=== PATIENT | male | born 1950 | race Caucasian/White ===

== ENCOUNTER → 2019-09-10 09:26 | Outpatient (BNVA) | payer MEDICARE, SELFPAY | PROVIDERS: Family Provider Family Medicine; PCP Family Medicine; Visit Provider Urology | DX: C61 Malignant neoplasm of prostate (principal) | CPT/HCPCS: 81001 ==

== ENCOUNTER → 2019-10-29 10:10 | Outpatient (BNVA) | payer MEDICARE, SELFPAY | PROVIDERS: Family Provider Family Medicine; PCP Family Medicine; Visit Provider Family Medicine | DX: E78.2 Mixed hyperlipidemia (principal) | CPT/HCPCS: 36415; 80061 ==

== ENCOUNTER → 2019-12-11 00:01 | Outpatient (BNVA) | payer MEDICARE, SELFPAY | PROVIDERS: Family Provider Family Medicine; PCP Family Medicine; Visit Provider Family Medicine | DX: E78.5 Hyperlipidemia, unspecified (principal) | CPT/HCPCS: 80061 ==

== ENCOUNTER → 2020-02-25 15:16 | Outpatient (BNVA) | payer MEDICARE, SELFPAY | PROVIDERS: Family Provider Family Medicine; PCP Family Medicine; Visit Provider Urology | DX: C61 Malignant neoplasm of prostate (principal) | CPT/HCPCS: 84153 ==

== ENCOUNTER → 2020-03-11 14:15 | Outpatient (BNVA) | payer MEDICARE, SELFPAY | PROVIDERS: Family Provider Family Medicine; PCP Family Medicine; Visit Provider Urology | DX: C61 Malignant neoplasm of prostate (principal) | CPT/HCPCS: 81001 ==

== ENCOUNTER → 2020-08-26 09:00 | Outpatient (BNVA) | payer MEDICARE, SELFPAY | PROVIDERS: Family Provider Family Medicine; PCP Family Medicine; Visit Provider Urology | DX: C61 Malignant neoplasm of prostate (principal) | CPT/HCPCS: 84153 ==

== ENCOUNTER → 2020-09-10 13:38 | Outpatient (BNVA) | payer MEDICARE, SELFPAY | PROVIDERS: Family Provider Family Medicine; PCP Family Medicine; Visit Provider Urology | DX: C61 Malignant neoplasm of prostate (principal); R97.20 Elevated prostate specific antigen [PSA] | CPT/HCPCS: 81003 ==

== ENCOUNTER → 2020-09-24 08:53 | Outpatient (BNVA) | payer MEDICARE, SELFPAY | PROVIDERS: Family Provider Family Medicine; PCP Family Medicine; Visit Provider Urology | DX: C61 Malignant neoplasm of prostate (principal) | CPT/HCPCS: 84153 ==

== ENCOUNTER → 2020-09-30 15:41 | Outpatient (BNVA) | payer MEDICARE, SELFPAY | PROVIDERS: Family Provider Family Medicine; PCP Family Medicine; Visit Provider Urology | DX: C61 Malignant neoplasm of prostate (principal); N41.1 Chronic prostatitis; R97.20 Elevated prostate specific antigen [PSA] | CPT/HCPCS: 81003 ==

== ENCOUNTER 2020-11-26 06:00 | Outpatient (RCR) | payer MEDICARE, SELFPAY | END 2020-11-26 23:59 | disposition home or self-care (01) | LOC: GPT 06:00 | PROVIDERS: Family Provider Family Medicine; PCP Family Medicine; Referring Provider Family Medicine; Visit Provider Family Medicine | DX: R29.6 Repeated falls (principal) | CPT/HCPCS: 97032; 97161; 97530; 97760 ==

== ENCOUNTER 2020-11-27 06:00 | Outpatient (RCR) | payer MEDICARE, SELFPAY | END 2020-12-26 23:59 | disposition home or self-care (01) | LOC: GPT 06:00 | PROVIDERS: Family Provider Family Medicine; PCP Family Medicine; Referring Provider Family Medicine; Visit Provider Family Medicine | DX: R29.6 Repeated falls (principal) | CPT/HCPCS: 97110; 97112; 97116; 97164; 97530; 97760 ==

== ENCOUNTER 2020-12-27 06:00 | Outpatient (RCR) | payer MEDICARE, SELFPAY | END 2021-01-26 23:59 | disposition home or self-care (01) | LOC: GPT 06:00 | PROVIDERS: PCP Family Medicine; Referring Provider Family Medicine; Visit Provider Family Medicine | DX: R29.6 Repeated falls (principal) | CPT/HCPCS: 97110; 97112; 97116; 97530; 97760 ==

== ENCOUNTER → 2021-01-06 10:34 | Outpatient (BNVA) | payer MEDICARE, SELFPAY | PROVIDERS: Family Provider Family Medicine; PCP Family Medicine; Visit Provider Family Medicine | DX: M25.561 Pain in right knee (principal); M25.562 Pain in left knee; R29.6 Repeated falls | CPT/HCPCS: 73562 ==

== ENCOUNTER → 2021-01-21 08:44 | Outpatient (BNVA) | payer MEDICARE, SELFPAY | PROVIDERS: PCP Family Medicine; Visit Provider Family Medicine | DX: R97.20 Elevated prostate specific antigen [PSA] (principal) | CPT/HCPCS: 84153 ==

== ENCOUNTER → 2021-01-28 13:43 | Outpatient (BNVA) | payer MEDICARE, SELFPAY | PROVIDERS: PCP Family Medicine; Visit Provider Urology | DX: C61 Malignant neoplasm of prostate (principal) | CPT/HCPCS: 81003 ==

== ENCOUNTER → 2021-07-29 09:33 | Outpatient (BNVA) | payer MEDICARE, SELFPAY | PROVIDERS: PCP Family Medicine; Visit Provider Family Medicine | DX: C61 Malignant neoplasm of prostate (principal) | CPT/HCPCS: 84153 ==

== ENCOUNTER → 2021-08-04 13:09 | Outpatient (BNVA) | payer MEDICARE, SELFPAY | PROVIDERS: PCP Family Medicine; Visit Provider Urology | DX: N41.1 Chronic prostatitis (principal); C61 Malignant neoplasm of prostate | CPT/HCPCS: 81003 ==

== ENCOUNTER 2021-10-27 06:00 | Outpatient (RCR) | payer MEDICARE, SELFPAY | END 2021-11-26 23:59 | disposition home or self-care (01) | LOC: SPT 06:00 | PROVIDERS: PCP Family Medicine; Referring Provider Orthopaedic Surgery; Visit Provider Orthopaedic Surgery | DX: M17.12 Unilateral primary osteoarthritis, left knee (principal) | CPT/HCPCS: 97032; 97110; 97116; 97140; 97161; G0283 ==

== ENCOUNTER 2021-11-27 06:00 | Outpatient (RCR) | payer MEDICARE, SELFPAY | END 2021-12-26 23:59 | disposition home or self-care (01) | LOC: SPT 06:00 | PROVIDERS: PCP Family Medicine; Referring Provider Orthopaedic Surgery; Visit Provider Orthopaedic Surgery | DX: M17.12 Unilateral primary osteoarthritis, left knee (principal) | CPT/HCPCS: 97110; 97116; 97140; G0283 ==

== ENCOUNTER 2021-12-27 06:00 | Outpatient (RCR) | payer MEDICARE, SELFPAY | END 2022-01-18 23:59 | disposition home or self-care (01) | LOC: SPT 06:00 | PROVIDERS: PCP Family Medicine; Referring Provider Orthopaedic Surgery; Visit Provider Orthopaedic Surgery | DX: M17.12 Unilateral primary osteoarthritis, left knee (principal) | CPT/HCPCS: 97110; 97140 ==

== ENCOUNTER → 2022-02-08 09:00 | Outpatient (BNVA) | payer MEDICARE, SELFPAY | PROVIDERS: PCP Family Medicine; Visit Provider Urology | DX: R97.20 Elevated prostate specific antigen [PSA] (principal) | CPT/HCPCS: 84153 ==

== ENCOUNTER → 2022-02-15 15:10 | Outpatient (BNVA) | payer MEDICARE, SELFPAY | PROVIDERS: PCP Family Medicine; Visit Provider Urology | DX: C61 Malignant neoplasm of prostate (principal) | CPT/HCPCS: 81003; 99213 ==

== ENCOUNTER → 2022-05-06 09:30 | Outpatient (BNVA) | payer MEDICARE, SELFPAY | PROVIDERS: PCP Family Medicine; Visit Provider Nurse Practitioner Family | DX: E78.5 Hyperlipidemia, unspecified (principal) | CPT/HCPCS: 80053; 80061; 84443 ==

== ENCOUNTER 2022-06-02 11:19 | Emergency (ER) | payer MEDICARE, SELFPAY ==
[2022-06-02 11:32] VITALS: BP 161/100; PULSE 58; RESP 16; TEMP 36.9; O2SAT 97; BMI 28.0
--- NOTE | 2022-06-02 11:40 | XRR_ITS ---
PROCEDURE INFORMATION: Exam: XR Sacrum and Coccyx, 2 or More Views Exam date and time: 06/02/2022 12:20 PM Age: 72 years old Clinical indication: Injury or trauma; Fall; Blunt trauma (contusions or hematomas); Additional info: Fall and hit tail bone area TECHNIQUE: Imaging protocol: XR of the sacrum and coccyx, 2 or more views. COMPARISON: MR prostate 08/10/2019 6:27 PM FINDINGS: Bones/joints: Degenerative changes are present in the lower lumbar spine. No acute fracture. Soft tissues: Normal. XR/XR sacrum coccyx min 2V [id number] IMPRESSION: No acute findings.
--- NOTE | 2022-06-02 11:40 | XRR_ITS ---
PROCEDURE INFORMATION: Exam: XR Lumbosacral Spine Exam date and time: 06/02/2022 12:20 PM Age: 72 years old Clinical indication: Pain and injury or trauma; Fall; Blunt trauma (contusions or hematomas); Low back pain; Additional info: Fall with low back pain TECHNIQUE: Imaging protocol: Radiologic exam of the lumbosacral spine. Views: 2 or 3 views. COMPARISON: MR prostate 08/10/2019 6:27 PM FINDINGS: Bones/joints: No fracture, malalignment or acute abnormality is seen in the lumbar spine. Moderate chronic degenerative disease is present with osteophytes on the vertebral bodies. There is sclerosis and narrowing of the lumbar facet joints. Soft tissues: Unremarkable. Vasculature: There is prominent calcification of the aorta. 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 No acute abnormality.
--- NOTE | 2022-06-02 11:41 | ED_ITS ---
HPI - Fall General: Chief Complaint: Fall Stated Complaint: Pain in back Time Seen by Provider: 06/02/22 11:39 History of Present Illness: Patient is a 72-year-old male comes to the ED with lower back pain after fall. Fall occurred approximately 4 days ago. He lost his balance while standing and fell backwards landing on his butt and lower back. Denies any head trauma or loss of consciousness. For the past couple days he has been having worsening lower back pain throughout his lower back. With movement of torso pain radiates into his lower abdomen. While at rest he rates the pain a 3 out of 10 but worsens with any torso movement. Endorses having some pain right around the tailbone region as well. He has not taken anything for pain before coming to the ED. Denies any pain radiating down his legs. Associated symptoms-after fall: Denies abdominal pain, chest pain, headache(s), hematuria or neck pain Review of Systems Const: Denies: fever(s), chills or fatigue Eyes: Denies: change in vision or eye discomfort ENMT: Denies: throat pain, odynophagia, nasal discharge or nasal congestion Card: Denies: chest pain, palpitations, edema, swelling of feet/ankles, dyspnea on exertion or orthopnea Resp: Denies: dyspnea, productive cough or non-productive cough GI: Denies: abdominal pain, nausea, vomiting, diarrhea, constipation or hematochezia : Denies: flank pain, difficulty urinating, dysuria or hematuria Musc: Reports: back pain; Denies: neck pain or extremity swelling Skin/Breast: Denies: rash or new lesions Neuro: Denies: headache(s), numbness in extremities or weakness in extremities PFSH ED PFSH: Medical History Prostate cancer Diagnosed 2011 with PSA of approximately 8. Normal VIC. Chose active surveillance. Some fluctuation in PSA probably related to infection. Follow-up 3T MRI in 2019 showed only PIRADS 2. No dramatic trend upwards not associated with inflammation. Surgical History H/O prostate biopsy also by Dr. Franz in [facility]. Home Status post appendectomy Status post bilateral hernia repair Family History Family/Other Cancer Hypertension Stroke Diabetes Father , at age 67-lung cancer No problems noted. Mother , at age 55 Stroke Social History Smoking and tobacco status: never smoked Quit status (tobacco): has quit using tobacco Year quit tobacco: 1981 Alcohol intake: current Alcohol intake frequency: few times a month Marital status: Current occupational status: retired History of recent travel: No Physical Exam Const: COMMON NORMALS: no acute distress, patient oriented x3, healthy appearing and alert GENERAL APPEARANCE: cooperative and comfortable HENMT: COMMON NORMALS: normocephalic HEAD & SCALP: normocephalic MOUTH: Normal oral and palatal mucosa present THROAT: posterior oropharynx normal and uvula midline Neck/C-Spine: COMMON NORMALS: supple GENERAL: Yes normal visual inspection Resp: COMMON NORMALS: normal respiratory effort, No retractions, No use of accessory muscles and clear to auscultation bilaterally AUSCULTATION: clear to auscultation bilaterally Cardio: COMMON NORMALS: regular rate, regular rhythm, S1 normal heart sound present, S2 normal heart sound present, No gallops present (Cardio), No clicks present (Cardio), No murmurs present (Cardio) and Peripheral pulses 2+ throughout RATE: regular rate RHYTHM: regular rhythm HEART SOUNDS: S1 normal heart sound present and S2 normal heart sound present PERIPHERAL PULSES: Peripheral pulses 2+ throughout GI: COMMON NORMALS: Normal to inspection, nondistended, normoactive bowel sounds present, Soft to palpation, non-tender and no masses PALPATION: Yes Soft to palpation : COMMON NORMALS: Yes no CVA tenderness BLADDER/KIDNEY EXAM: Yes no CVA tenderness Back/Pelvis: COMMON NORMALS: no CVA tenderness LUMBAR SPINE/LOWER BACK: Yes pain with ROM, No lumbar spinal tenderness and Yes paraspinal muscle tenderness Lumbar paraspinal muscle tenderness: bilateral Bilateral lumbar paraspinal muscle tenderness: L2, L3 and L4 Extremity: COMMON NORMALS: normal to inspection Neuro: COMMON NORMALS: patient oriented x3 SENSORIUM/ORIENTATION: Yes alert GAIT: Yes Normal gait present Skin: GENERAL SKIN EXAM: dry skin Course Vital Signs: Vital signs: Vital Signs Temperature 98.5 F 06/02/22 11:32 Pulse Rate 58 L 06/02/22 11:32 Respiratory Rate 16 06/02/22 11:32 Blood Pressure 161/100 06/02/22 11:32 Pulse Oximetry 97 06/02/22 11:32 MDM - Fall Medical Decision Making Patient is a 72-year-old male comes to the ED with lower back pain after fall. Fall occurred approximately 4 days ago. He lost his balance while standing and fell backwards landing on his butt and lower back. Denies any head trauma or loss of consciousness. Vitals are stable. Patient appears nontoxic and in no acute distress or pain. He has some pain in his lumbar spine with range of motion and some paraspinal muscle tenderness throughout lumbar spine. X-ray of sacrum and coccyx and lumbar spine showed no acute fractures or findings. Patient's back pain likely contusion of the lower back due to fall. Patient was given a dose of Toradol and muscle relaxer here in the ED. He was discharged home with a prescription for ibuprofen 800 mg and methocarbamol. Told to follow-up with PCP in the next week for reevaluation. Patient understood and agreed with plan. 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 No acute abnormality. Sacrum and Coccyx X-Ray 06/02/22 11:40 IMPRESSION: No acute findings. Discharge Plan Discharge Patient Disposition: Home Clinical Impression: Back pain due to injury Condition: Stable Prescriptions: New methocarbamol 750 mg tablet 750 mg PO Q8H PRN (Reason: Back muscle spasms and pain) Qty: 20 0RF ibuprofen 800 mg tablet 800 mg PO Q8H PRN (Reason: pain) Qty: 20 0RF No Action meloxicam 7.5 mg tablet 7.5 mg PO DAILY metoprolol succinate 25 mg tablet extended release 24 hr 25 mg PO BID Qty: 60 11RF amlodipine 10 mg tablet 10 mg PO DAILY Qty: 30 11RF triamterene-hydrochlorothiazid 37.5-25 mg tablet See Rx Instructions .ROUTE .COMPLEX Qty: 30 11RF Dose Instruction: TAKE ONE TABLET BY MOUTH ONCE DAILY Rx Instructions: TAKE ONE TABLET BY MOUTH ONCE DAILY simvastatin 5 mg tablet 5 mg PO DAILY Qty: 30 11RF Discharge Orders: Discharge ED (Routine); Ordered 06/02/22 Ordered By: Jassi Senior Referrals: Davin Collier DO [Primary Care Provider] - Discharge Diet: Regular Discharge Activity: Increase activity as tolerated Patient Instructions: Back Pain (ED) Activity Restrictions/Additional Instructions: Follow-up with medical provider as directed in the next 5 to 7 days for reevaluation. Take medications as prescribed. Return to the ER or your medical provider if condition worsens. Please read and understand discharge instructions. Thank you for choosing [facility] for your healthcare needs today. Please realize this is an emergency room and that we are providing you with a medical screening exam and this may not be complete and all inclusive of all the testing and or work up that you may need to determine your ailment or severity of your illness. It is very important that you follow up as instructed or that you return to the Emergency Department should you have concerns or if your condition changes or worsens in any way. Coding Level of Care Code ED Telephonic Nurse Case Manager for Mckenzie Hay Exam Comprehensive
[2022-06-02] MEDS: orphenadrine 30 mg/mL Inj 2 mL 60 MG IM (13:13)
[2022-06-02] MEDS: ketorolac 30 mg/mL INJ 60 MG IM (13:28)
== END 2022-06-02 14:10 | disposition home or self-care (01) ==
PROVIDERS: Emergency Provider Physician Assistant; PCP Family Medicine
DX: S39.92XA Unspecified injury of lower back, initial encounter (principal); Z87.891 Personal history of nicotine dependence; Z85.46 Personal history of malignant neoplasm of prostate; W18.30XA Fall on same level, unspecified, initial encounter
CPT/HCPCS: 72100; 72220; 96372; 99284; J1885; J2360

== ENCOUNTER 2022-06-30 06:00 | Outpatient (RCR) | payer MEDICARE, SELFPAY | END 2022-07-28 23:59 | disposition home or self-care (01) | LOC: SPT 06:00 | PROVIDERS: PCP Family Medicine; Visit Provider Family Medicine | DX: M47.816 Spondylosis without myelopathy or radiculopathy, lumbar region (principal); S39.011A Strain of muscle, fascia and tendon of abdomen, initial encounter; S39.012A Strain of muscle, fascia and tendon of lower back, initial encounter; X58.XXXA Exposure to other specified factors, initial encounter | CPT/HCPCS: 97110; 97140; 97162; 97530 ==

== ENCOUNTER → 2022-08-11 11:19 | Outpatient (BNVA) | payer MEDICARE, SELFPAY | PROVIDERS: PCP Family Medicine; Visit Provider Family Medicine | DX: C61 Malignant neoplasm of prostate (principal) | CPT/HCPCS: 84153 ==

== ENCOUNTER → 2022-08-17 12:33 | Outpatient (BNVA) | payer MEDICARE, SELFPAY | PROVIDERS: PCP Family Medicine; Visit Provider Urology | DX: C61 Malignant neoplasm of prostate (principal); R97.20 Elevated prostate specific antigen [PSA] | CPT/HCPCS: 81003; 99213 ==

== ENCOUNTER → 2022-12-15 10:30 | Outpatient (BNVA) | payer MEDICARE, SELFPAY | PROVIDERS: PCP Family Medicine; Visit Provider Nurse Practitioner Family | DX: R60.9 Edema, unspecified (principal) | CPT/HCPCS: 80053 ==

== ENCOUNTER → 2022-12-22 13:02 | Outpatient (BNVA) | payer MEDICARE, SELFPAY | PROVIDERS: PCP Family Medicine; Visit Provider Nurse Practitioner Family | DX: Z79.899 Other long term (current) drug therapy (principal); R60.9 Edema, unspecified; Z68.27 Body mass index [BMI] 27.0-27.9, adult | CPT/HCPCS: 80053 ==

== ENCOUNTER → 2023-01-19 09:20 | Outpatient (BNVA) | payer MEDICARE, SELFPAY | PROVIDERS: PCP Family Medicine; Visit Provider Nurse Practitioner Family | DX: R60.9 Edema, unspecified (principal); Z79.899 Other long term (current) drug therapy; Z68.27 Body mass index [BMI] 27.0-27.9, adult | CPT/HCPCS: 80053 ==

== ENCOUNTER → 2023-02-17 10:52 | Outpatient (BNVA) | payer MEDICARE, SELFPAY | PROVIDERS: PCP Family Medicine; Visit Provider Nurse Practitioner Family | DX: E78.5 Hyperlipidemia, unspecified (principal); Z79.899 Other long term (current) drug therapy; R60.9 Edema, unspecified | CPT/HCPCS: 80053; 80061 ==

== ENCOUNTER 2023-03-11 08:20 | Outpatient (RCR) | payer MEDICARE, SELFPAY ==
--- NOTE | 2023-03-11 08:50 | N.ONRAD NP_ITS ---
Radiation Oncology Consultation Patient Name: Magdy Mancilla Date of : 1950 Date of Service: 03/11/2023 Attending Physician: Eliel Atkins M.D. Magdy Mancilla was seen in consultation this morning at the request of Elian Almanzar M.D. for consideration of prostate radiotherapy in the management of a previously diagnosed prostate cancer. He initially was identified to have an elevated PSA level (6.7 ng/mL) in September of 2011. A biopsy diagnosed an adenocarcinoma the prostate Marylou score of 3+3 involving 2% of the specimen. The patient decided upon active surveillance. The PSA levels slowly began rising. An MRI of the prostate obtained in July of 2019 did not identify any lesions. In July 2022, the PSA level was 18 ng/mL. An MRI of the prostate ordered on September 07, 2022 ordered a 4.9 cm x 6.3 cm x 4.2 cm prostate gland (68 cc). Suspicious lesion was noted in the right postero-lateral base of the peripheral zone measuring 6 mm x 8 mm. An MRI-guided biopsy performed on February 17, 2023 diagnosed an adenocarcinoma of the prostate with a Marylou score of 4+3 (Grade Group 3) involving 70% of the core submitted from right mid-gland. He was referred for radiotherapy treatment options. I discussed with the patient the [place] [employer] on Cancer staging and the patient's presumed clinical stage IIC (T2aN0) unfavorable intermediate-risk prostate cancer corresponding to his disease. I also reviewed the National Comprehensive Cancer Network Guidelines recommending surgery, external beam radiotherapy with androgen deprivation therapy (6 months), or radiotherapy with brachytherapy (as per the ASCENDE-RT Trial). I will order a PSA and testosterone level. A Pylarify scan has been ordered by his urologist. The potential toxicities of pelvic radiotherapy were addressed. The patient has verbalized understanding would like to proceed as recommended. The patient???s treatment plan was discussed with Kyle Joshua D.O. Signed by: Dr. Eliel Atkins 03/11/2023 8:48:41 AM
[2023-03-11 09:03] VITALS: BP 134/80; PULSE 57; RESP 18; TEMP 36.7; O2SAT 98
[2023-03-11 09:39] LABS: Testosterone Total 713.2 ng/dL (193-740)
== END 2023-03-28 23:59 | disposition home or self-care (01) ==
LOC: ONCMED 08:20
PROVIDERS: PCP Family Medicine; Visit Provider Radiology Radiation Oncology
DX: C61 Malignant neoplasm of prostate (principal); Z87.891 Personal history of nicotine dependence
CPT/HCPCS: 36415; 84153; 84403; 99205

== ENCOUNTER 2023-05-20 14:06 | Outpatient (CLI) | payer MEDICARE, SELFPAY ==
--- NOTE | 2023-05-20 15:00 | XR_ITS ---
WS: [id number] SCREENING DEXA SCAN [employer] CLINICAL INFORMATION: prostate cancer, androgen deprivation therapy COMPARISON: None. FINDINGS: The L1-L4 bone mineral density measures 1.473 g/cm2. This corresponds to a T score score of 2.1 and Z score of 2.8. Left femoral neck bone mineral density measures 0.912 g/cm2. This corresponds to a T score of -1.3 an d Z score of -0.4. Right femoral neck bone mineral density measures 0.912 g/cm2. This corresponds to a T score -1.3of an d Z score of -0.4. Mean femoral neck bone mineral density measures 0.912 g/cm2. This corresponds to a T score of -1.3 an d Z score of -0.4. IMPRESSION: Normal bone mineralization lumbar spine. Osteopenia femoral necks. Patient's FRAX calculated 10 year probability for major osteoporotic fracture is 10.0% and osteoporot ic hip fracture is 3.9%.
== END 2023-05-20 14:07 | disposition home or self-care (01) ==
PROVIDERS: PCP Family Medicine; Visit Provider Internal Medicine Medical Oncology
DX: Z13.820 Encounter for screening for osteoporosis (principal); C61 Malignant neoplasm of prostate; Z79.818 Long term (current) use of other agents affecting estrogen receptors and estrogen levels; M85.852 Other specified disorders of bone density and structure, left thigh; M85.851 Other specified disorders of bone density and structure, right thigh
CPT/HCPCS: 77080

== ENCOUNTER 2023-05-24 14:30 | Oncology outpatient (recurring) (ONCR) | payer MEDICARE, SELFPAY ==
--- NOTE | 2023-05-03 16:33 | ONCRAD EPV_ITS ---
Radiation Oncology Established Patient Visit Patient: Laurent Curran [id number] : 1950> Age: 73> Sex: Male> Dictated by: Julito Bronson Date of Service: 05/03/2023 Referring Physician(s) : Diagnosis: 2022 Prostate, adenocarcinoma, [place] 4+3, PSA 21.5, grade group 3, risk group high 2011 Prostate, adenocarcinoma, Marylou 3+3, PSA 6.7, grade group 2, risk group very low Active Surveillance. Radiotherapy to Date: None Current History: Mr. Mancilla previously saw Dr. Atkins, who summarized his history of active surveillance since 2011. He had a very low risk cancer at that time. It has now transitioned into a high risk cancer. He was sent for a Pylarify scan. The results have returned with no evidence of lymphadenopathy in the pelvis or metastatic disease. There are positive areas in the prostate with no extraprostatic extension seen. He returns now to discuss appropriate treatment. Current Medications: Not evaluated. Allergies: Not evaluated. Current Complaints / Review of Systems: . Not evaluated. Vital Signs: Performed on 05/03/2023 1:23 PM BMI - 25.119 kg/m2 (high), Height - 68 in, Weight - 165.2 lbs, Temperature - 98 f, Pulse - 52 /min (low), Respiration - 18 /min, O2 Sat - 95 % (low), Pain - 0, Fatigue - 0 and BP - 144/ 73 mm(hg)(high/). Physical Exam: General: Alert and oriented x 3. No acute distress Performance Status: Karnofsky 70 Lab: None pending. Pathology: Whitehall 4+3 Impression: Based on a PSA of 21.5, Mr. Mancilla is in the high risk group of prostate cancer patients. ADT is recommended with external beam radiation. I discussed that with him. I discussed that typically ADT is given and then radiation is started about 6 weeks later. I discussed coming in for simulation about 2 weeks before starting radiation. I reviewed the side effects related to ADT. I then reviewed the side effects related to radiation. I discussed the small risk of bowel or bladder injury. He wishes to proceed with ADT followed by external beam radiation. A referral will be made to medical oncology. Signed by: 05/03/2023 4:31:29 PM <<Signature on File>> Time spent with patient: CPT Code: CPT Code:
[2023-05-11 13:33] VITALS: BP 180/80; PULSE 54; RESP 16; TEMP 36.6; O2SAT 99
[2023-05-11 13:45] LABS: Basophils # 0.1 10^3/uL (0.0-0.1); Basophils % 0.6 %; Eosinophils # 0.2 10^3/uL (0.0-0.8); Eosinophils % 1.7 %; Hematocrit 50.1 % (37-53); Lymphocytes # 2.8 10^3/uL (0.8-4.8); Lymphocytes % 27.3 %; Mean Corpuscular HGB Conc 33.7 g/dL (30-55); Mean Corpuscular Hemoglobin 29.6 pg (27-33); Mean Corpuscular Volume 87.9 fl (82-101); Mean Platelet Volume 9.2 fL (7.4-10.4); Monocytes # 0.7 10^3/uL (0.2-0.9); Monocytes % 7.2 %; Nucleated Red Blood Cells % 0 %; Platelet Count 254 10^3/cmm (157-399); Red Cell Distribution Width 12.9 % (12.1-15.1); White Blood Count 10.15 10^3/uL (3.29-11.43)
[2023-05-11 14:22] LABS: Alanine Aminotransferase 20 U/L (0-41); Albumin Level 4.1 g/dL (3.5-5.2); Alkaline Phosphatase 84 U/L (40-130); Anion Gap 11.1 (5-19); Aspartate Amino Transferase 16 U/L (0-40); Blood Urea Nitrogen 20 mg/dL (8-23); Calcium 9.5 mg/dL (8.5-10.5); Carbon Dioxide 32 mmol/L (22-29); Chloride 98 mmol/L (98-107); Glucose 132 mg/dL (65-115); Osmolality Calculated 288 mOsm/kg (285-295); Potassium 4.1 mmol/L (3.5-5.1); Sodium 137 mmol/L (136-145); Testosterone Total 463.6 ng/dL (193-740); Total Bilirubin 1.2 mg/dL (0.15-1.2); Total Protein 7.1 g/dL (6.6-8.7)
[2023-05-24 14:48] VITALS: BP 165/76; PULSE 56; RESP 17; TEMP 37; O2SAT 97
[2023-05-24] MEDS: leuprolide 22.5 mg Kit IM (15:01)
[2023-05-24 15:12] VITALS: BP 126/77; PULSE 52; RESP 17; TEMP 35.8; O2SAT 99
== END 2023-05-28 23:59 | disposition home or self-care (01) ==
PROVIDERS: Internal Medicine Medical Oncology; PCP Family Medicine; Visit Provider Radiology Radiation Oncology
DX: C61 Malignant neoplasm of prostate; Z53.9 Procedure and treatment not carried out, unspecified reason
CPT/HCPCS: 36415; 80053; 84153; 84403; 85025; 96402; 99205; 99214; J9217

== ENCOUNTER → 2023-06-07 11:14 | Outpatient (BNVA) | payer MEDICARE, SELFPAY | PROVIDERS: PCP Family Medicine; Visit Provider Surgery | DX: Z12.11 Encounter for screening for malignant neoplasm of colon (principal) | CPT/HCPCS: 99024; 99203 ==

== ENCOUNTER 2023-07-08 08:45 | Day surgery (SDC) | payer MEDICARE, SELFPAY ==
[2023-07-08 09:10] VITALS: BMI 26.6
[2023-07-08 09:12] VITALS: BP 169/75; PULSE 53; RESP 16; TEMP 36.4; O2SAT 98
[2023-07-08] MEDS: sodium chloride 0.9% 1,000 ML 30 ML IV (09:39)
--- NOTE | 2023-07-08 09:48 | ANES.PREANE2 ---
Pre-Anesthetic Assessment Height/Weight: Height 1.68 m Weight 74.843 kg Temp Pulse Resp BP Pulse Ox O2 Del Method 97.6 F 53 L 16 169/75 98 Room Air 07/08/23 09:12 07/08/23 09:12 07/08/23 09:12 07/08/23 09:12 07/08/23 09:12 07/08/23 09:12 Preop Diagnosis: Screening Operation Date: 07/08/23 10:00 Proposed Procedures p [id number] Colonoscopy,[id number] screen colon A risk(Not Applicable) - Lauro Lane DO Familial anesthetic complications: None Was Beta Shelbie taken within 24 hours: Yes Was Clonidine taken within 24 hours: N/A Last intake: Intake Last Liquid Date 07/07/23 Last Liquid Time 22:00 Last Solid Date 07/06/23 Last Solid Time 17:00 Social Alcohol (Social) and No tobacco Exam alert, oriented x 3, clear to auscultation bilaterally and regular rate & rhythm Airway Submandibular: within normal limits Cervical ROM: Other (Decreased ROM) Mallampati: Class III Dentition: full (Bridge top right) History/ROS No significant history except as noted and No significant complaints Pulmonary Sleep Apnea (Untreated) CV/HEM Hypertension Prostate Cancer Hepatic Hepatitis (As a teenager) GI None reported Metabolic Hyperlipidemia Musc/skel Lower Back Pain and Osteoarthritis/DJD Neuropsych Anxiety and Depression Anesthetic Plan ASA status: 3 Anesthesia: Anesthesia Evaluation, General and MAC Risk of > 500 ml blood loss (7ml/kg in children): No Medications/Allergies Home Medications Medication Instructions Recorded Confirmed Last Taken Type simvastatin 20 mg tablet 20 mg PO DAILY #30 tabs 10/25/22 07/06/23 07/06/23 Rx metoprolol succinate 25 mg 25 mg PO BID #180 tabs 11/23/22 07/08/23 07/08/23 Rx tablet,extended release 24 hr gabapentin 100 mg capsule 200 mg PO BID 12/15/22 07/06/23 07/06/23 History potassium chloride 20 mEq 20 meq PO DAILY #90 tabs 02/17/23 07/06/23 07/06/23 Rx tablet,extended release bicalutamide 50 mg tablet (Casodex) 50 mg PO DAILY #60 tabs 05/11/23 07/06/23 07/06/23 Rx calcium carbonate 500 mg-vitamin 1 tab PO BID #60 tabs 06/01/23 07/06/23 07/06/23 Rx D3 10 mcg (400 unit) tablet (Oyster Shell Calcium-Vitamin D3) Vitamin D3 10 mcg PO DAILY 07/06/23 07/06/23 07/06/23 History amlodipine 5 mg tablet 5 mg PO DAILY 07/06/23 07/08/23 07/08/23 History furosemide 40 mg tablet 40 mg PO DAILY 07/06/23 07/06/23 07/06/23 History triamterene 37.5 1 tab PO DAILY 07/06/23 07/06/23 07/06/23 History mg-hydrochlorothiazide 25 mg tablet (Maxzide-25mg) Allergies Allergy/AdvReac Type Severity Reaction Status Date / Time RAGWEED Allergy ALGY-Conges Uncoded 07/08/23 09:31 romulo Current Medications Generic Name Dose Route Start Last Admin Trade Name Freq PRN Reason Stop Dose Admin Sodium Chloride 1,000 mls @ 30 mls/hr 07/08/23 09:00 07/08/23 09:39 Sodium Chloride 0.9% IV 07/09/23 08:59 30 mls/hr .Q24H DARION Administration PFSH Anesthesia Medical History Prostate cancer Diagnosed 2011 with PSA of approximately 8. Normal VIC. Chose active surveillance. Some fluctuation in PSA probably related to infection. Follow-up 3T MRI in 2019 showed only PIRADS 2. No dramatic trend upwards not associated with inflammation. Surgical History H/O prostate biopsy also by Dr. Franz in [place]. Home Status post appendectomy Status post bilateral hernia repair Family History Family/Other Cancer Hypertension Stroke Diabetes Father , at age 67-lung cancer No problems noted. Mother , at age 55 Stroke Social History Smoking and tobacco/nicotine status: never used tobacco/nicotine Quit status (tobacco/nicotine): has quit using Year quit tobacco: 1981 Alcohol intake: current Alcohol intake frequency: few times a month Substance/Drug Use: never Marital status: Current occupational status: retired Data Anesthesia Cardiac Studies: No Data to Display
--- NOTE | 2023-07-08 09:59 | PM.HP ---
Providers/Chief Complaint Primary Care Provider: Davin Collier DO Chief Complaint: Z12.11 History of Present Illness Magdy Mancilla is a 73 year old male Review of Systems General: Reports: 10 or more systems reviewed and unremarkable except in HPI and below Medications/Allergies Home Medications Medication Instructions Recorded Confirmed Last Taken Type simvastatin 20 mg tablet 20 mg PO DAILY #30 tabs 10/25/22 07/06/23 07/06/23 Rx metoprolol succinate 25 mg 25 mg PO BID #180 tabs 11/23/22 07/08/23 07/08/23 Rx tablet,extended release 24 hr gabapentin 100 mg capsule 200 mg PO BID 12/15/22 07/06/23 07/06/23 History potassium chloride 20 mEq 20 meq PO DAILY #90 tabs 02/17/23 07/06/23 07/06/23 Rx tablet,extended release bicalutamide 50 mg tablet (Casodex) 50 mg PO DAILY #60 tabs 05/11/23 07/06/23 07/06/23 Rx calcium carbonate 500 mg-vitamin 1 tab PO BID #60 tabs 06/01/23 07/06/23 07/06/23 Rx D3 10 mcg (400 unit) tablet (Oyster Shell Calcium-Vitamin D3) Vitamin D3 10 mcg PO DAILY 07/06/23 07/06/23 07/06/23 History amlodipine 5 mg tablet 5 mg PO DAILY 07/06/23 07/08/23 07/08/23 History furosemide 40 mg tablet 40 mg PO DAILY 07/06/23 07/06/23 07/06/23 History triamterene 37.5 1 tab PO DAILY 07/06/23 07/06/23 07/06/23 History mg-hydrochlorothiazide 25 mg tablet (Maxzide-25mg) Allergies Allergy/AdvReac Type Severity Reaction Status Date / Time RAGWEED Allergy ALGY-Conges Uncoded 07/08/23 09:31 romulo PFSH Acute PFSH: Medical History Prostate cancer Diagnosed 2011 with PSA of approximately 8. Normal VIC. Chose active surveillance. Some fluctuation in PSA probably related to infection. Follow-up 3T MRI in 2019 showed only PIRADS 2. No dramatic trend upwards not associated with inflammation. Surgical History H/O prostate biopsy also by Dr. Franz in [place]. Home Status post appendectomy Status post bilateral hernia repair Family History Family/Other Cancer Hypertension Stroke Diabetes Father , at age 67-lung cancer No problems noted. Mother , at age 55 Stroke Social History Smoking and tobacco/nicotine status: never used tobacco/nicotine Quit status (tobacco/nicotine): has quit using Year quit tobacco: 1981 Alcohol intake: current Alcohol intake frequency: few times a month Substance/Drug Use: never Marital status: Current occupational status: retired Vitals/I&O/Wt Last Vital Signs Temp 97.6 F 07/08/23 09:12 Pulse 53 L 07/08/23 09:12 Resp 16 07/08/23 09:12 BP 169/75 07/08/23 09:12 Pulse Ox 98 07/08/23 09:12 O2 Del Method Room Air 07/08/23 09:12 Weight last 48 hrs Weight 165 lb A&P Assessment and plan (1) Colon cancer screening: Plan Colonoscopy Attestations Medical Necessity Statement*: Home Coding Level of Care Code Acute Code for Chg Fwd Diagnoses Colon cancer screening Z12.11
[2023-07-08 10:30] VITALS: BP 115/66; PULSE 54; RESP 16; TEMP 36.1; O2SAT 100
[2023-07-08 10:40] VITALS: BP 145/66; PULSE 54; RESP 18; O2SAT 98
[2023-07-08 10:51] VITALS: BP 146/74; PULSE 54; RESP 18; O2SAT 98
--- NOTE | 2023-07-08 12:40 | ANE.PACU2 ---
Inpatient post-anesthesia follow up: Airway intact: Yes Vital signs: Temperature 97.0 F Pulse Rate 54 Respiratory Rate 18 Blood Pressure 146/74 Pulse Oximetry 98 Oxygen Delivery Me thod Room Air Oxygen Flow Rate Fraction of Inspir ed Oxygen Hydration adequate: Yes Nausea and vomiting: No Pain level: 2 Mental status: Baseline
== END 2023-07-08 11:15 | disposition home or self-care (01) ==
PROVIDERS: PCP Family Medicine; Visit Provider Surgery
PROC: 0DJD8ZZ Inspection of Lower Intestinal Tract, Via Natural or Artificial Opening Endoscopic (ICD-10-PCS; CPT 45378; principal; 2023-07-08 10:00)
DX: Z12.11 Encounter for screening for malignant neoplasm of colon (principal); Z85.46 Personal history of malignant neoplasm of prostate; D12.2 Benign neoplasm of ascending colon; D12.3 Benign neoplasm of transverse colon; G47.30 Sleep apnea, unspecified; I10 Essential (primary) hypertension; E78.5 Hyperlipidemia, unspecified
CPT/HCPCS: 45385; 88305; J2405; J2704; J7030

== ENCOUNTER 2023-07-28 09:12 | Oncology outpatient (recurring) (ONCR) | payer MEDICARE, SELFPAY ==
--- NOTE | 2023-07-19 10:27 | ONCRAD TMN_ITS ---
Radiation Oncology Weekly Treatment Management Patient: Laurent Curran MR#: [id number] : 1950 Attending Physician: Julito Bronson Date of Service: 07/19/2023 Referring Physician(s) : Dr. Mccain Diagnosis: Prostate cancer, stage T2aN0 Radiotherapy to date: Course: Prostate 2022, Treatment Site: [id number], Ref. ID: [id number], Energy: 15X, Dose/Fx (cGy): 250, #Fx: , Dose Correction (cGy): 0, Total Dose (cGy): 500, Start Date: 07/18/2023, Elapsed Days: 1 Reason for visit: The patient is being seen today as part of their regularly scheduled weekly on treatment visits to assess for acute toxicities from radiotherapy. Review of Systems: Mr. Mancilla has just started treatment, receiving 500 cGy in 2 fractions. He has had no change in his overall status. He has no specific questions about radiation at this time other than whether the whole prostate is being treated. I confirmed that it he has. He has finished bicalutamide. He questioned whether to get a refill. He is not sure how long ADT is planned. I reviewed his medical oncology consult. He will receive ADT for 18 to 36 months. It was stated that 2 years is the most common timeframe. 6 weeks of bicalutamide was recommended. I discussed this issue with Mr. Mancilla. He asked about the stage of his cancer. His cancer is confined to the prostate and Dr. Atkins staged it T2aN0. I discussed that also. Vital Signs: Performed on 07/19/2023 9:33 AM BMI - 25.94 kg/m2 (high), Height - 68 in, Weight - 170.6 lbs, Temperature - 97 f, Pulse - 61 /min, Respiration - 16 /min, O2 Sat - 98 %, Pain - 0, Fatigue - 0 and BP - 157/ 71 mm(hg)(high/). Physical Exam: Alert, oriented, no acute distress. Imaging: Radiation therapy imaging related to accurate target localization (i.e. KV, MV and CBCT) was reviewed. Appropriate changes, if any, were made to ensure treatment accuracy. Plan: Continue treatment according to plan. I told him based on the medical oncology consult he does not need to get a refill of the bicalutamide. Signed by: Julito Bronson 07/19/2023 10:26:38 AM
--- NOTE | 2023-07-26 10:53 | ONCRAD TMN_ITS ---
Radiation Oncology Weekly Treatment Management Patient: Magdy Mancilla MR#: [id number] : 1950 Attending Physician: Yobani Kiran Date of Service: 07/26/2023 Referring Physician(s) : Dr. Mccain Diagnosis: Prostate cancer, stage T2aN0 Radiotherapy to date: Course: Prostate 2022, Treatment Site: [id number], Ref. ID: [id number], Energy: 15X, Dose/Fx (cGy): 250, #Fx: , Dose Correction (cGy): 0, Total Dose (cGy): 1,111.1, Start Date: 07/18/2023, Elapsed Days: 8 Reason for visit: The patient is being seen today as part of their regularly scheduled weekly on treatment visits to assess for acute toxicities from radiotherapy. Review of Systems: Patient denies any difficulty with dysuria, urgency, or frequency. He is staying with friends and has been sleeping in a recliner. He tried to sleep in a bed last night but reports difficulty getting out of bed due to previous spinal injuries. Vital Signs: Performed on 07/26/2023 9:28 AM BMI - 25.727 kg/m2 (high), Height - 68 in, Weight - 169.2 lbs, Temperature - 97.0 f, Pulse - 62 /min, Respiration - 16 /min, O2 Sat - 98 %, Pain - 9, Fatigue - 0 and BP - 154/ 79 mm(hg)(high/). Physical Exam: Alert and oriented male appearing his stated age. Patient is ambulatory with a cane and walks with a limp. Imaging: Radiation therapy imaging related to accurate target localization (i.e. KV, MV and CBCT) was reviewed. Appropriate changes, if any, were made to ensure treatment accuracy. Plan: Continue prescribed treatment. Patient has been encouraged to rest today and to continue using the recliner for sleep. He has been instructed to contact our office if he notes any changes in his urinary or bowel symptoms. Signed by: Yobani Kiran 07/26/2023 10:52:58 AM
== END 2023-07-28 23:59 | disposition home or self-care (01) ==
PROVIDERS: PCP Family Medicine; Visit Provider Radiology Radiation Oncology
DX: Z51.0 Encounter for antineoplastic radiation therapy (principal); C61 Malignant neoplasm of prostate
CPT/HCPCS: 77300; 77301; 77334; 77338; 77385; 77417; 99024; 99213

== ENCOUNTER 2023-08-16 08:50 | Oncology outpatient (recurring) (ONCR) | payer MEDICARE, SELFPAY ==
--- NOTE | 2023-08-02 10:03 | ONCRAD TMN_ITS ---
Radiation Oncology Weekly Treatment Management Patient: Magdy Mancilla MR#: [id number] : 1950 Attending Physician: Dr. 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 ID: [id number], Energy: 15X, Dose/Fx (cGy): 250, #Fx: , Dose Correction (cGy): 0, Total Dose (cGy): 2,500, Start Date: 07/18/2023, Elapsed Days: 15 Reason for visit: The patient is being seen today as part of their regularly scheduled weekly on treatment visits to assess for acute toxicities from radiotherapy. Review of Systems: Patient is doing well. He has not had any real issues from the radiation. He did have some watery stools after eating a can of beans. He took Imodium with good relief. He is otherwise noticed no changes in bowel or bladder habits. Vital Signs: Performed on 08/02/2023 9:42 AM BMI - 25.028 kg/m2 (high), Height - 68 in, Weight - 164.6 lbs, Temperature - 96.9 f, Pulse - 60 /min, Respiration - 16 /min, O2 Sat - 99 %, Pain - 8, Fatigue - 5 and BP - 167/ 75 mm(hg)(high/). Physical Exam: No changes in skin. Abdomen soft and nontender Imaging: Radiation therapy imaging related to accurate target localization (i.e. KV, MV and CBCT) was reviewed. Appropriate changes, if any, were made to ensure treatment accuracy. Plan: We will continue with his treatments as planned. I reviewed with him the typical changes we see with radiation-induced bowel changes. I have cautioned him not to get carried away using the Imodium if he should have these changes. I encouraged him to use the Imodium if he has the watery diarrhea. We did talk about his ADT and he thinks that the last shot he got may have been in [place]. At this point we will set him up to make sure he gets his ADT done here in medical oncology when it is due. Signed by: Dr. Dalia Sams 08/02/2023 10:01:26 AM
--- NOTE | 2023-08-09 10:07 | ONCRAD TMN_ITS ---
Radiation Oncology Weekly Treatment Management Patient: Laurent Curran> MR#: [id number] : 1950> Attending Physician: Dr. Dalia Sams Date of Service: 08/09/2023 Fractions: 15 out of 28 Referring Physician(s) : Diagnosis: Radiotherapy to date: Course: Prostate 2022, Treatment Site: [id number], Ref. ID: [id number], Energy: 15X, Dose/Fx (cGy): 250, #Fx: 15 , Dose Correction (cGy): 0, Total Dose (cGy): 3,750, Start Date: 07/18/2023, Elapsed Days: 22 Reason for visit: The patient is being seen today as part of their regularly scheduled weekly on treatment visits to assess for acute toxicities from radiotherapy. Review of Systems: Patient continues to have some increased frequency of stools. He is taking about 1 Imodium a day. He also has had some increased frequency and urgency. He is on a water pill. Vital Signs: Performed on 08/09/2023 9:30 AM BMI - 25.271 kg/m2 (high), Height - 68 in, Weight - 166.2 lbs, Temperature - 97.4 f, Pulse - 60 /min, Respiration - 18 /min, O2 Sat - 98 %, Pain - 0, Fatigue - 0 and BP - 154/ 73 mm(hg)(high/). Physical Exam: No acute changes Imaging: Radiation therapy imaging related to accurate target localization (i.e. KV, MV and CBCT) was reviewed. Appropriate changes, if any, were made to ensure treatment accuracy. Plan: Will continue with his treatments as planned. I have asked him to increase his Imodium dose. Will also try Flomax for his frequency and urgency. I will send the Flomax to his pharmacy. Signed by: Dr. Dalia Sams 08/09/2023 10:05:55 AM
--- NOTE | 2023-08-16 10:18 | ONCRAD TMN_ITS ---
Radiation Oncology Weekly Treatment Management Patient: Magdy Mancilla MR#: [id number] : 1950 Attending Physician: Sergey Ge Date of Service: 08/16/2023 Referring Physician(s) : Diagnosis: Radiotherapy to date: Course: Prostate 2022, Treatment Site: [id number], Ref. ID: [id number], Energy: 15X, Dose/Fx (cGy): 250, #Fx: , Dose Correction (cGy): 0, Total Dose (cGy): 5,000, Start Date: 07/18/2023, Elapsed Days: Reason for visit: The patient is being seen today as part of their regularly scheduled weekly on treatment visits to assess for acute toxicities from radiotherapy. Review of Systems: He notes slow urinary flow with 1 to 2 x nocturia. He is on flow medication (Flomax?) with no change in urinary habits. Diarrhea mild and using some Imodum. He fell and re-injured his back and now is limited in activity. Walking with a cane due to balance issues and previous falls. He has Lupron scheduled for tomorrow. Vital Signs: Performed on 08/16/2023 9:40 AM BMI - 25.544 kg/m2 (high), Height - 68 in, Weight - 168.0 lbs, Temperature - 97.6 f, Pulse - 60 /min, Respiration - 16 /min, O2 Sat - 99 %, Pain - 0, Fatigue - 3 and BP - 150/ 69 mm(hg)(high/). Imaging: Radiation therapy imaging related to accurate target localization (i.e. KV, MV and CBCT) was reviewed. Appropriate changes, if any, were made to ensure treatment accuracy. Plan: Good tolerance of treatment. Continue as planned. Signed by: Sergey Ge 08/16/2023 10:16:42 AM
== END 2023-08-16 23:59 | disposition home or self-care (01) ==
PROVIDERS: PCP Family Medicine; Visit Provider Radiology Radiation Oncology
DX: Z51.0 Encounter for antineoplastic radiation therapy (principal); C61 Malignant neoplasm of prostate
CPT/HCPCS: 77014; 77336; 77385; 99024

== ENCOUNTER 2023-08-25 08:57 | Oncology outpatient (recurring) (ONCR) | payer MEDICARE, SELFPAY ==
[2023-08-17 11:45] VITALS: BP 141/67; PULSE 58; RESP 16; TEMP 36.9; O2SAT 99
[2023-08-17 11:51] LABS: Basophils % 0.5 %; Eosinophils # 0.6 10^3/uL (0.0-0.8); Hematocrit 43.4 % (37-53); Lymphocytes # 1.2 10^3/uL (0.8-4.8); Lymphocytes % 21.3 %; Mean Corpuscular HGB Conc 34.3 g/dL (30-55); Mean Corpuscular Volume 87.3 fl (82-101); Mean Platelet Volume 9.4 fL (7.4-10.4); Monocytes # 0.6 10^3/uL (0.2-0.9); Monocytes % 9.9 %; Neutrophils # 3.22 10^3/uL (1.8-7.7); Neutrophils % 57.3 %; Nucleated Red Blood Cells % 0 %; Platelet Count 217 10^3/cmm (157-399); Red Blood Count 4.97 10^6/uL (3.85-5.65); Red Cell Distribution Width 13.2 % (12.1-15.1); White Blood Count 5.63 10^3/uL (3.29-11.43)
[2023-08-17 12:16] LABS: Alanine Aminotransferase 17 U/L (0-41); Albumin Level 4.1 g/dL (3.5-5.2); Alkaline Phosphatase 62 U/L (40-130); Anion Gap 11.5 (5-19); Aspartate Amino Transferase 20 U/L (0-40); Blood Urea Nitrogen 14 mg/dL (8-23); Calcium 9.6 mg/dL (8.5-10.5); Carbon Dioxide 28 mmol/L (22-29); Chloride 104 mmol/L (98-107); Globulin 2.8 g/dL (1.3-4.6); Glucose 111 mg/dL (65-115); Osmolality Calculated 289 mOsm/kg (285-295); Potassium 4.5 mmol/L (3.5-5.1); Prostate Specific Antigen 0.808 ng/mL (0-4); Sodium 139 mmol/L (136-145); Total Bilirubin 1.5 mg/dL (0.15-1.2); Total Protein 6.9 g/dL (6.6-8.7)
[2023-08-17] MEDS: leuprolide 22.5 mg Kit IM (13:32)
--- NOTE | 2023-08-23 11:15 | ONCRAD TMN_ITS ---
Radiation Oncology Weekly Treatment Management Patient: Magdy Mancilla MR#: [id number] : 1950 Attending Physician: Julito Bronson Date of Service: 08/23/2023 Referring Physician(s) : Dr. Mccain Diagnosis: Prostate Cancer Radiotherapy to date: Course: Prostate 2022, Treatment Site: [id number], Ref. ID: [id number], Energy: 15X, Dose/Fx (cGy): 250, #Fx: , Dose Correction (cGy): 0, Total Dose (cGy): 6,000, Start Date: 07/18/2023, Elapsed Days: 36 Reason for visit: The patient is being seen today as part of their regularly scheduled weekly on treatment visits to assess for acute toxicities from radiotherapy. Review of Systems: He has 4 treatments to go. His main complaint is that every time he urinates he passes a small amount of stool. His perianal area and intergluteal fold are getting sore from the multiple bowel movements and wiping. He has some antibiotic ointment that has helped a little. He has a history of hemorrhoids and is going to get some Preparation H today. He says that he is not really having diarrhea. He states that actually he has tended toward constipation lately. He says stopped the Imodium A-D. In terms of the bladder, he has a slow stream but empties adequately. He continues to have nocturia x 1 or 2. He received Lupron last week. He is not sure how many injections he will receive. He ask about treatment results as well. Vital Signs: Performed on 08/23/2023 9:38 AM BMI - 25.788 kg/m2 (high), Height - 68 in, Weight - 169.6 lbs, Temperature - 97.6 f, Pulse - 58 /min (low), Respiration - 16 /min, O2 Sat - 99 %, Pain - 2, Fatigue - 3 and BP - 157/ 73 mm(hg)(high/). Physical Exam: Alert, oriented, no acute distress. Ambulatory without assistance. Imaging: Radiation therapy imaging related to accurate target localization (i.e. KV, MV and CBCT) was reviewed. Appropriate changes, if any, were made to ensure treatment accuracy. Plan: He has a bathtub so I will have him use warm sitz bath's with a small amount of baking soda 2 times per day. He will get Preparation H or the equivalent. He will hold the Imodium A-D since he is tending toward constipation. I told him that the prostate cancer response to treatment will primarily be followed by PSA. Signed by: Julito Bronson 08/23/2023 11:14:21 AM
== END 2023-08-25 23:59 | disposition home or self-care (01) ==
PROVIDERS: Internal Medicine Medical Oncology; PCP Family Medicine; Visit Provider Specialist
DX: Z51.0 Encounter for antineoplastic radiation therapy (principal); C61 Malignant neoplasm of prostate
CPT/HCPCS: 36415; 77014; 77336; 77385; 80053; 84153; 84403; 85025; 96402; 99024; 99213; J9217

== ENCOUNTER 2023-08-26 09:04 | Oncology outpatient (recurring) (ONCR) | payer MEDICARE, SELFPAY | END 2023-08-28 23:59 | disposition home or self-care (01) | PROVIDERS: PCP Family Medicine; Visit Provider Specialist | DX: Z51.0 Encounter for antineoplastic radiation therapy (principal); C61 Malignant neoplasm of prostate | CPT/HCPCS: 77014; 77385 ==

== ENCOUNTER → 2023-09-01 08:09 | Outpatient (BNVA) | payer MEDICARE, SELFPAY | PROVIDERS: PCP Family Medicine; Visit Provider Nurse Practitioner Family | DX: E78.2 Mixed hyperlipidemia (principal); C61 Malignant neoplasm of prostate | CPT/HCPCS: 80053; 80061; 84443 ==

== ENCOUNTER 2023-09-26 10:00 | Oncology outpatient (recurring) (ONCR) | payer MEDICARE, SELFPAY ==
--- NOTE | 2023-08-30 15:34 | N.ONRD TS_ITS ---
Radiation Oncology Treatment Summary Patient: Laurent>Luh MR#: [id number] : 1950> Age: 73> Sex: Male Dictated by: Sergey Ge Date of Service: 08/30/2023 Referring Physician(s) : Diagnosis: Radiotherapy to Date: Course: Prostate 2022, Treatment Site: [id number], Ref. ID: [id number], Energy: 15X, Dose/Fx (cGy): 250, #Fx: , Dose Correction (cGy): 0, Total Dose (cGy): 7,000, Start Date: 07/18/2023, End Date: 08/30/2023, Elapsed Days: 43 Clinical Summary: The patient tolerated RT well. He did have some anal soreness and passed a bit of stool with urination. He treated anal soreness with topical antibiotics and Prep H. He had no diarrhea. He had a slow stream and 2 x nocturia. He had Lupron 08/20/2023. Plan: End of treatment today. Follow up in one month. Plan on ongoing follow up with urology with PSA. Signed by: Sergey Ge>08/30/2023 3:33:25 PM <<Signature on File>>
--- NOTE | 2023-09-26 10:10 | ONCRAD EPV_ITS ---
Radiation Oncology Established Patient Visit Patient: Laurent Curran [id number] : 1950> Age: 73> Sex: Male> Dictated by: Yobani Kiran Date of Service: 09/26/2023 Referring Physician(s) : Diagnosis: Radiotherapy to Date: Course: Prostate 2022, Treatment Site: [id number], Ref. ID: [id number], Energy: 15X, Dose/Fx (cGy): 250, #Fx: , Dose Correction (cGy): 0, Total Dose (cGy): 7,000, Start Date: 07/18/2023, End Date: 08/30/2023, Elapsed Days: 43 Current History: Patient is seen in follow-up today proximately 1 month after completion of external beam radiation therapy. He reports nocturia x 2-3. He used Imodium A-D for diarrhea occasionally and reports that his diarrhea has resolved. Patient reports that overall he is sleeping well although he has been sleeping in his recliner for the past year. He has undergone a right knee replacement and reports a history of compression fracture of the spine but has declined any treatment for the compression fracture. Patient reports a history of falls x 10 over the past year. He has a history of hypertension and is on antihypertensive medications under the care of Dr. Davin Collier, his primary care physician. He has a history of being seen by different urologist including Dr. Betancourt who is now retired. Current Medications: icalutamide (Casodex) 50 mg PO DAILY calcium carbonate-vitamin D3 500 mg-10 mcg (400 unit) (Oyster Shell Calcium-Vitamin D3) 1 tab PO BID furosemide TAKE ONE TABLET BY MOUTH ONCE DAILY gabapentin 200 mg PO BID metoprolol succinate ER 25 mg PO BID potassium chloride ER 20 mEq PO DAILY simvastatin 20 mg PO DAILY tamsulosin (Flomax) 0.4 mg PO DAILY MDD 0.4 triamterene-hydrochlorothiazid 37.5-25 mg (Maxzide-25mg) 1 tab PO DAILY [Vitamin D3 10 mcg PO DAILY] Allergies: Ragweed Current Complaints / Review of Systems: . Vital Signs: Performed on 09/26/2023 9:04 AM BMI - 25.849 kg/m2 (high), Height - 68 in, Weight - 170 lbs, Temperature - 97.5 f, Pulse - 52 /min (low), Respiration - 18 /min, O2 Sat - 98 %, Pain - 0, Fatigue - 0 and BP - 139/ 70 mm(hg). Physical Exam: General: Alert and oriented x 3. No acute distress. HEENT: Normocephalic, atraumatic. Extraocular Movements Intact: Pupils Equal, Round, Reactive to Light and Accommodation: Sclerae anicteric. Oral cavity is clear without lesions, masses or ulcers. NECK: Supple without supraclavicular or jugular lymphadenopathy. LUNGS: Clear to auscultation bilaterally without rales, rhonchi or wheeze. HEART: Regular rate and rhythm, normal S1 and S2 without murmur, gallop or rub. MUSCULOSKELETAL: No tenderness or percussion pain over the axial skeleton, scapulae or pelvis. ABDOMEN: Soft, nontender, nondistended without masses or organomegaly. Bowell sounds are present. EXTREMITIES: No peripheral edema is identified. Limited motor and sensory examination are grossly intact and symmetric bilaterally. NEUROLOGIC: Cranial nerves II ???XII are grossly intact. Normal sensation, strength 5/5 in all extremities, patient has difficulty ambulating secondary to his arthritic conditions. Lab: None pending. PSA ordered today. Impression: Magdy Mancilla is recovering well from the acute effects of his extremity radiation therapy. I have recommended that he call Dr. Almanzar's office and establish himself with the new urologist. Additionally I have recommended that he check with Dr. Collier's office for evaluation of orthostatic blood pressure to determine if adjustments in his antihypertensive medication are indicated. Signed by: 09/26/2023 10:09:19 AM <<Signature on File>> Time spent with patient: 30 minutes CPT Code: CPT Code:
[2023-09-26 10:40] LABS: Prostate Specific Antigen 0.187 ng/mL (0-4)
== END 2023-09-28 23:59 | disposition home or self-care (01) ==
PROVIDERS: PCP Family Medicine; Visit Provider Radiology Radiation Oncology
DX: Z51.0 Encounter for antineoplastic radiation therapy (principal); C61 Malignant neoplasm of prostate; R00.1 Bradycardia, unspecified; Z79.899 Other long term (current) drug therapy
CPT/HCPCS: 77014; 77385; 84153; 99024

== ENCOUNTER 2023-10-17 06:00 | Outpatient (RCR) | payer MEDICARE, SELFPAY | END 2023-10-27 23:59 | disposition home or self-care (01) | LOC: GPT 06:00 | PROVIDERS: Visit Provider Family Medicine | DX: M25.662 Stiffness of left knee, not elsewhere classified (principal); G62.9 Polyneuropathy, unspecified | CPT/HCPCS: 97110; 97112; 97163; 97530; 97535 ==

== ENCOUNTER 2023-11-01 15:56 | Inpatient (IN) | payer MEDICARE, SELFPAY ==
[2023-11-01 15:57] VITALS: BP 146/93; PULSE 72; TEMP 36.8; O2SAT 96; BMI 28.2
--- NOTE | 2023-11-01 16:01 | CTR_ITS ---
PROCEDURE INFORMATION: Exam: CT Cervical Spine Without Contrast Exam date and time: 11/01/2023 4:18 PM Age: 73 years old Clinical indication: Injury or trauma; Fall; Blunt trauma TECHNIQUE: Imaging protocol: Computed tomography of the cervical spine without contrast. Radiation optimization: All CT scans at this facility use at least one of these dose optimization techniques: automated exposure control; mA and/or kV adjustment per patient size (includes targeted exams where dose is matched to clinical indication); or iterative reconstruction. COMPARISON: No relevant prior studies available. RADIATION DOSE METRICS: Total DLP (mGy-cm): 183 FINDINGS: Bones/joints: Alignment within normal limits except for mild dextrocurvature. Abundant anterior and posterior endplate osteophytes are present. Degenerative disc disease is present, most severe at the C5-C6 level. There is partial fusion of the C3 and C4 vertebral bodies. No acute fracture or dislocation. Is multilevel mild central stenosis of the cervical spine secondary to osteophytes and facet arthropathy. There is moderate left C3-C4 and C4-C5 neural foraminal narrowing secondary to uncovertebral and facet hypertrophy. Lungs: No significant pathology of the lung apices. Soft tissues: No acute soft tissue pathology evident. CT/CT cervical spin wo con* [id number] IMPRESSION: 1. No evidence of acute traumatic pathology. 2. Degenerative changes detailed above.
--- NOTE | 2023-11-01 16:01 | CTR_ITS ---
PROCEDURE INFORMATION: Exam: CT Thoracic Spine Without Contrast Exam date and time: 11/01/2023 4:21 PM Age: 73 years old Clinical indication: Injury or trauma; Fall; Blunt trauma (contusions or hematomas) TECHNIQUE: Imaging protocol: Computed tomography of the thoracic spine without contrast. Radiation optimization: All CT scans at this facility use at least one of these dose optimization techniques: automated exposure control; mA and/or kV adjustment per patient size (includes targeted exams where dose is matched to clinical indication); or iterative reconstruction. COMPARISON: CT lumbar spine wo con* [id number] 11/01/2023 4:21 PM RADIATION DOSE METRICS: Total DLP (mGy-cm): 532 FINDINGS: Bones/joints: See lumbar spine CT report for description of T12 compression fracture. Mild dextrocurvature of the thoracic spine. Alignment otherwise within normal limits. Diffuse mild degenerative disc disease and osteopenia are present. Is also diffuse mild degenerative change of the facet joints. No thoracic spine fracture. Soft tissues: Unremarkable. Pleural spaces: Minimal pleural reaction. Bronchial wall thickening. Scattered pulmonary cysts in the imaged lungs in a nonspecific pattern. Coronary arteries: Coronary artery calcifications. Liver: Hepatic steatosis. Other findings: Small hiatal hernia. CT/CT thoracic spin wo con* [id number] IMPRESSION: 1. No acute traumatic pathology of the thoracic spine. T12 compression fracture again noted; see lumbar spine CT report for description. 2. Minor findings as above.
--- NOTE | 2023-11-01 16:01 | XRR_ITS ---
PROCEDURE INFORMATION: Exam: XR Bilateral Hips Exam date and time: 11/01/2023 4:06 PM Age: 73 years old Clinical indication: Injury or trauma; Fall; Blunt trauma (contusions or hematomas); Bilateral; Hip and pelvic region TECHNIQUE: Imaging protocol: Radiologic exam of the bilateral hips. Views: 2 views of hips with pelvis when performed. COMPARISON: CR XR lumbar spine 2-3V* [id number] 06/02/2022 12:20 PM FINDINGS: Bones/joints: Mild degenerative change of the bilateral hip and sacroiliac joints. No acute fracture or dislocation. Soft tissues: Vascular calcifications noted in the soft tissues. XR/XR hip BI 3-4V wo/w pel [id number] IMPRESSION: No acute bony pathology.
--- NOTE | 2023-11-01 16:01 | CTR_ITS ---
PROCEDURE INFORMATION: Exam: CT Lumbar Spine Without Contrast Exam date and time: 11/01/2023 4:21 PM Age: 73 years old Clinical indication: Injury or trauma; Fall; Blunt trauma (contusions or hematomas) TECHNIQUE: Imaging protocol: Computed tomography of the lumbar spine without contrast. Radiation optimization: All CT scans at this facility use at least one of these dose optimization techniques: automated exposure control; mA and/or kV adjustment per patient size (includes targeted exams where dose is matched to clinical indication); or iterative reconstruction. COMPARISON: CR XR lumbar spine 2-3V* [id number] 06/02/2022 12:20 PM RADIATION DOSE METRICS: Total DLP (mGy-cm): 587 FINDINGS: Bones/joints: Mild levocurvature of the lumbar spine. Alignment is otherwise within normal limits. Compared with the plain films dated 06/02/2022, interval appearance of a new moderate compression fracture of the L1 vertebral body. No retropulsed fragment is seen. Endplate osteophytes throughout the lumbar spine with no significant disc space narrowing. Moderate to severe degenerative changes of the lower lumbar spine facet joints. There is mild central stenosis at the L3-L4 level secondary to disc bulge and facet degenerative change. Stomach and bowel: Colonic diverticulosis without evidence of focal inflammatory change. Urinary bladder: 6 mm fat attenuation structure contiguous with the dome of the bladder on series 5, image 123, indeterminate but likely representing benign pathology and felt not to be related to acute traumatic pathology. Soft tissues: Unremarkable. CT/CT lumbar spine wo con* [id number] IMPRESSION: Moderate compression fracture of the L1 vertebral body without evidence of retropulsed fragment. No other acute traumatic pathology. Other findings including degenerative changes as detailed above.
--- NOTE | 2023-11-01 16:02 | ED_ITS ---
HPI - Fall 2 General: Chief Complaint: Fall Stated Complaint: Back pain post fall Time Seen by Provider: 11/01/23 15:58 Source: patient and EMS Mode of arrival: EMS Limitations: no limitations History of Present Illness: 73-year-old male is here with EMS after a fall he states that he fell at home last night at 8 PM states he had fallen in his house onto the floor he has pain in his low and mid back some neck pain and bilateral hip pain. He states he is not able to get up has been laying in the floor for 18 hours. PFSH ED 2 PFSH: Medical History Prostate cancer Surgical History Status post bilateral hernia repair Status post appendectomy H/O prostate biopsy [place] Dr. [place] Family History Family/Other Cancer Hypertension Stroke Diabetes Father , at age 67-lung cancer No problems noted. Mother , at age 55 Stroke Social History Smoking and tobacco/nicotine status: never used tobacco/nicotine Quit status (tobacco/nicotine): has quit using Year quit tobacco: 1982 Alcohol intake: current Alcohol intake frequency: few times a month Substance/Drug Use: never Marital status: Current occupational status: retired Physical Exam 2 Const: COMMON NORMALS: patient oriented x3 HENMT: COMMON NORMALS: normocephalic and atraumatic HEAD & SCALP: n ormocephalic and atraumatic Eye: COMMON NORMALS: Equal, round and reactive pupils present and EOMs intact bilaterally PUPIL: Yes Equal, round and reactive pupils present Neck/C-Spine: COMMON NORMALS: full ROM and supple OTHER: Paraspinal tenderness along cervical spine Chest: COMMONS NORMALS: normal inspection of the chest and normal palpation of entire chest wall Resp: COMMON NORMALS: normal respiratory effort, No retractions, No use of accessory muscles and clear to auscultation bilaterally AUSCULTATION: clear to auscultation bilaterally Cardio: COMMON NORMALS: regular rate, regular rhythm and No murmurs present (Cardio) RATE: regular rate RHYTHM: regular rhythm GI: COMMON NORMALS: Normal to inspection, nondistended, normoactive bowel sounds present, Soft to palpation, non-tender and no masses PALPATION: Yes Soft to palpation Back/Pelvis: OTHER: Tenderness along T and L-spine Extremity: COMMON NORMALS: normal to inspection and full ROM NARRATIVE EXTREMITY EXAM: Tenderness to bilateral hips no obvious deformity Neuro: COMMON NORMALS: patient oriented x3, moves all extremities and no focal motor deficits Psych: COMMON NORMALS: mental status grossly normal, Normal thought process present and cooperative THOUGHT PROCESS: Normal thought process present Skin: COMMON NORMALS: no rashes or lesions noted and no wounds GENERAL SKIN EXAM: no rashes or lesions noted Course 2 Vital Signs: Vital signs: Vital Signs Temperature 98.2 F 11/01/23 15:57 Pulse Rate 82 11/01/23 17:03 Respiratory Rate 16 11/01/23 17:00 Blood Pressure 147/69 11/01/23 17:03 Pulse Oximetry 96 11/01/23 17:03 Oxygen Delivery Me thod Room Air 11/01/23 15:57 MDM - Fall Medical Decision Making Patient presents here with a lumbar compression fracture from a fall he is also in rhabdomyolysis with elevated CK from being down for so long spoke to the hospitalist will admit for IV fluids along with pain control no pelvic fracture noted. He had no head injury. Medical Records I reviewed the patient's medical records. Lab Data I reviewed the patient's lab results. 11/01/23 17:16 11/01/23 17:16 Radiology Impressions Cervical Spine CT 11/01/23 16:01 IMPRESSION: 1. No evidence of acute traumatic pathology. 2. Degenerative changes detailed above. Hip/Pelvis X-Ray 11/01/23 16:01 IMPRESSION: No acute bony pathology. Lumbar Spine CT 11/01/23 16:01 IMPRESSION: Moderate compression fracture of the L1 vertebral body without evidence of retropulsed fragment. No other acute traumatic pathology. Other findings including degenerative changes as detailed above. Thoracic Spine CT 11/01/23 16:01 IMPRESSION: 1. No acute traumatic pathology of the thoracic spine. T12 compression fracture again noted; see lumbar spine CT report for description. 2. Minor findings as above. Pelvis CT 11/01/23 16:28 IMPRESSION: 1. No evidence of acute traumatic pathology. 2. Minor findings noted above including colonic diverticulosis and prostatomegaly. ADDENDUM: 11/01/23 1703 6 mm fat attenuation structure contiguous with the dome of the bladder on series 5, image 124, series 7, image 48 possibly representing a small atypical mural lipoma but felt not to be related to acute traumatic pathology. Laboratory Results WBC 6.90 10^3/uL (3.29-11.43) 11/01/23 17:16 RBC 4.52 10^6/uL (3.85-5.65) 11/01/23 17:16 Hgb 13.80 g/dL (11.27-16.99) 11/01/23 17:16 Hct 40.2 % (37-53) 11/01/23 17:16 MCV 88.9 fl (82-101) 11/01/23 17:16 MCH 30.5 pg (27-33) 11/01/23 17:16 MCHC 34.3 g/dL (30-55) 11/01/23 17:16 RDW 12.2 % (12.1-15.1) 11/01/23 17:16 Plt Count 173 10^3/cmm (157-399) 11/01/23 17:16 MPV 9.6 fL (7.4-10.4) 11/01/23 17:16 Neut % (Auto) 79.0 % 11/01/23 17:16 Lymph % (Auto) 9.1 % 11/01/23 17:16 [place] % (Auto) 11.2 % 11/01/23 17:16 Eos % (Auto) 0.1 % 11/01/23 17:16 Baso % (Auto) 0.3 % 11/01/23 17:16 Neut # (Auto) 5.45 10^3/uL (1.8-7.7) 11/01/23 17:16 Lymph # (Auto) 0.6 10^3/uL (0.8-4.8) L 11/01/23 17:16 [place] # (Auto) 0.8 10^3/uL (0.2-0.9) 11/01/23 17:16 Eos # (Auto) 0.0 10^3/uL (0.0-0.8) 11/01/23 17:16 Baso # (Auto) 0.0 10^3/uL (0.0-0.1) 11/01/23 17:16 Nucleated RBC % (auto) 0 % 11/01/23 17:16 Nucleated RBCs # 0.0 /100WBC 11/01/23 17:16 PT 13.50 SECONDS (12.1-14.9) 11/01/23 17:16 INR 1.00 (0.8-1.2) 11/01/23 17:16 Sodium 139 mmol/L (136-145) 11/01/23 17:16 Potassium 4.2 mmol/L (3.5-5.1) 11/01/23 17:16 Chloride 105 mmol/L (98-107) 11/01/23 17:16 Carbon Dioxide 26 mmol/L (22-29) 11/01/23 17:16 Anion Gap 12.2 (5-19) 11/01/23 17:16 BUN 18 mg/dL (8-23) 11/01/23 17:16 Creatinine 0.8 mg/dL (0.7-1.2) 11/01/23 17:16 GFR Calculation Not Reportable 11/01/23 17:16 Glucose 112 mg/dL (65-115) 11/01/23 17:16 Calculated Osmolality 291 mOsm/kg (285-295) 11/01/23 17:16 Calcium 8.8 mg/dL (8.5-10.5) 11/01/23 17:16 Total Bilirubin 1.0 mg/dL (0.15-1.2) 11/01/23 17:16 AST 64 U/L (0-40) H 11/01/23 17:16 ALT 24 U/L (0-41) 11/01/23 17:16 Alkaline Phosphatase 53 U/L (40-130) 11/01/23 17:16 Creatine Kinase 3268 U/L (39-308) H* 11/01/23 17:16 Total Protein 6.0 g/dL (6.6-8.7) L 11/01/23 17:16 Albumin 3.5 g/dL (3.5-5.2) 11/01/23 17:16 Globulin 2.5 g/dL (1.3-4.6) 11/01/23 17:16 All radiology interpretation(s) finalized by discharge Discharge Plan Discharge Patient Disposition: Admitted As Inpatient Clinical Impression: Fall, Rhabdomyolysis, Closed compression fracture of lumbar vertebra Condition: Stable Prescriptions: No Action gabapentin 100 mg capsule 200 mg PO BID simvastatin 20 mg tablet 20 mg PO DAILY Qty: 30 11RF metoprolol succinate 25 mg tablet extended release 24 hr 25 mg PO BID Qty: 180 3RF potassium chloride 20 mEq tablet extended release 20 meq PO DAILY Qty: 90 3RF calcium carbonate-vitamin D3 [Oyster Shell Calcium-Vit D3] 500 mg-10 mcg (400 unit) tablet 1 tab PO BID Qty: 60 3RF furosemide 40 mg tablet See Rx Instructions .ROUTE .COMPLEX Qty: 30 0RF Dose Instruction: TAKE ONE TABLET BY MOUTH ONCE DAILY Rx Instructions: TAKE ONE TABLET BY MOUTH ONCE DAILY tamsulosin [Flomax] 0.4 mg capsule 0.4 mg PO DAILY MDD 0.4 Qty: 30 11RF amlodipine 5 mg tablet See Rx Instructions .ROUTE .COMPLEX Qty: 90 0RF Dose Instruction: TAKE ONE TABLET BY MOUTH ONCE DAILY Rx Instructions: TAKE ONE TABLET BY MOUTH ONCE DAILY Vitamin D3 10 mcg PO DAILY triamterene-hydrochlorothiazid [Maxzide-25mg] 37.5-25 mg tablet 1 tab PO DAILY Rx Instructions: TAKE ONE TABLET BY MOUTH ONCE DAILY Coding Level of Care Code ED [employer] for [employer]
--- NOTE | 2023-11-01 16:28 | CTR_ITS ---
PROCEDURE INFORMATION: Exam: CT Pelvis Without Contrast; Skeletal Exam date and time: 11/01/2023 4:31 PM Age: 73 years old Clinical indication: Injury or trauma; Fall; Blunt trauma (contusions or hematomas); Bilateral; Hip TECHNIQUE: Imaging protocol: Computed tomography of the pelvis without contrast. Exam focused on the skeleton. Radiation optimization: All CT scans at this facility use at least one of these dose optimization techniques: automated exposure control; mA and/or kV adjustment per patient size (includes targeted exams where dose is matched to clinical indication); or iterative reconstruction. COMPARISON: CR XR hip BI 3-4V wo/w pel [id number] 11/01/2023 4:06 PM RADIATION DOSE METRICS: Total DLP (mGy-cm): 433 FINDINGS: Stomach and bowel: Colonic diverticulosis without evidence of focal inflammatory change. Urinary bladder: Bladder wall appears thickened although this is accentuated by incomplete distention. Reproductive: Moderate prostatomegaly. Intraperitoneal space: No ascites. Lymph nodes: No evidence of lymphadenopathy. Bones/joints: No acute fracture or dislocation. Mild degenerative changes of the hip joints. Partially fused sacroiliac joints. Soft tissues: Moderate right inguinal hernia containing fat and nonobstructed loop of bowel. Small fat containing left inguinal hernia. Small fat containing umbilical hernia. CT/CT pelvis wo con [id number] IMPRESSION: 1. No evidence of acute traumatic pathology. 2. Minor findings noted above including colonic diverticulosis and prostatomegaly.
[2023-11-01] MEDS: sodium chloride 0.9% 1,000 ML 999 ML IV (16:59)
[2023-11-01 17:00] VITALS: RESP 16; O2SAT 94
[2023-11-01] MEDS: ondansetron 2 mg/ML SDV 2 mL 4 MG IVP (17:00)
[2023-11-01] MEDS: morphine 4 mg/mL SDV 1 mL IVP (17:00)
[2023-11-01 17:03] VITALS: BP 147/69; PULSE 82; O2SAT 96
[2023-11-01 17:22] LABS: Basophils % 0.3 %; Eosinophils % 0.1 %; Hematocrit 40.2 % (37-53); Lymphocytes # 0.6 10^3/uL (0.8-4.8); Lymphocytes % 9.1 %; Mean Corpuscular HGB Conc 34.3 g/dL (30-55); Mean Corpuscular Hemoglobin 30.5 pg (27-33); Mean Corpuscular Volume 88.9 fl (82-101); Mean Platelet Volume 9.6 fL (7.4-10.4); Monocytes # 0.8 10^3/uL (0.2-0.9); Monocytes % 11.2 %; Neutrophils # 5.45 10^3/uL (1.8-7.7); Nucleated Red Blood Cells % 0 %; Platelet Count 173 10^3/cmm (157-399); Red Blood Count 4.52 10^6/uL (3.85-5.65); Red Cell Distribution Width 12.2 % (12.1-15.1)
[2023-11-01 17:57] LABS: Alanine Aminotransferase 24 U/L (0-41); Albumin Level 3.5 g/dL (3.5-5.2); Alkaline Phosphatase 53 U/L (40-130); Anion Gap 12.2 (5-19); Aspartate Amino Transferase 64 U/L (0-40); Blood Urea Nitrogen 18 mg/dL (8-23); Calcium 8.8 mg/dL (8.5-10.5); Carbon Dioxide 26 mmol/L (22-29); Chloride 105 mmol/L (98-107); Creatinine Clr Calc Pharmacy 79.0287; Globulin 2.5 g/dL (1.3-4.6); Glucose 112 mg/dL (65-115); Osmolality Calculated 291 mOsm/kg (285-295); Potassium 4.2 mmol/L (3.5-5.1); Sodium 139 mmol/L (136-145)
[2023-11-01 18:09] LABS: Creatine Phosphokinase 3268 U/L (39-308)
[2023-11-01 19:16] VITALS: BP 139/63; PULSE 76; O2SAT 93
[2023-11-01 20:30] VITALS: BP 159/82; PULSE 77; RESP 18; TEMP 36.7; O2SAT 93
[2023-11-01 20:31] VITALS: BMI 28.3
[2023-11-01] MEDS: sodium chloride 0.9% 1,000 ML 75 ML IV (21:35)
[2023-11-01] MEDS: amlodipine 5 mg Tablet PO (21:36)
[2023-11-01] MEDS: heparin 5,000 unit/mL INJ 1 mL 5000 UNIT SUBCUT (21:36)
[2023-11-01 22:00] VITALS: PULSE 76
--- NOTE | 2023-11-01 22:30 | P.HP_ITS ---
Providers/Chief Complaint 2 Admitting Physician: Deandre Kunz MD Primary Care Provider: Davin Collier DO Chief Complaint: Back pain post fall History of Present Illness Magdy Mancilla is a 73 year old male with prostate cancer, currently on radiation therapy, hypertension, dyslipidemia history of recurrent falls and increasing frequency over the past 2 to 3 years. Patient states that no obvious cause has been found for his frequent falls episodes. Yesterday patient suffered a mechanical fall at home. States that he was getting out of his recliner and was going to get to his cane, however felt a loss of balance and fell to the floor. Since then he has been suffering from pain in his back and hips. Presented to the emergency room today as he was concerned about spinal fractures. He states that he had a fracture 1 year ago from a mechanical fall and the pain felt similar therefore he presented to the ED. CT of the pelvis negative for fractures. CT of the thoracolumbar spine showing moderate compression fracture of the L1 vertebral body. He denies any loss of consciousness. States that he has felt dizzy with some episodes of his previous falls but did not experience anything similar yesterday. No chest pain dyspnea or palpitations prior to the event. Review of Systems 2 General: Reports: 10 or more systems reviewed and unremarkable except in HPI and below Const: Denies: fever(s), chills or body aches Eyes: Denies: change in vision, blurry vision or photophobia ENMT: Reports: hoarseness; Denies: throat pain, enlarged tonsils, odynophagia or nasal congestion Card: Denies: chest pain, palpitations, irregular heart rhythm, edema, swelling of feet/ankles, lightheadedness, pre-syncope, dyspnea on exertion or orthopnea Resp: Denies: dyspnea, productive cough, non-productive cough, wheezing, stridor, pain on inspiration, change in phlegm color, hemoptysis or chest congestion GI: Denies: abdominal pain, nausea, vomiting, hematemesis, coffee ground emesis, dysphagia, heartburn, diarrhea, constipation, GI cramping, change in stool character, hematochezia or melena : Denies: flank pain, dysuria, urinary frequency, urinary urgency, urinary hesitancy or hematuria Musc: Denies: neck pain, back pain, extremity pain, joint swelling, joint warmth or deformity Neuro: Denies: headache(s), numbness in extremities, weakness in extremities, sensory changes, difficulty walking, frequent falls, dizziness, vertigo, behavioral changes, Slurred speech present or seizure-like activity Psych: Denies: anxiety, depression, suicidal ideation or homicidal ideation Endo: Denies: polyuria, polydipsia, tired all the time, cold intolerance or hot flashes Fabricio/Lymph: Denies: easy bruising or easy bleeding Medications/Allergies Home Medications Medication Instructions Recorded Confirmed Last Taken Type simvastatin 20 mg tablet 20 mg PO DAILY #30 tabs 10/25/22 11/01/23 10/31/23 Rx metoprolol succinate 25 mg 25 mg PO BID #180 tabs 11/23/22 11/01/23 10/31/23 09:00 Rx tablet,extended release 24 hr gabapentin 100 mg capsule 200 mg PO BID 12/15/22 11/01/23 10/31/23 History potassium chloride 20 mEq 20 meq PO DAILY #90 tabs 02/17/23 11/01/23 07/06/23 Rx tablet,extended release calcium carbonate 500 mg-vitamin 1 tab PO BID #60 tabs 06/01/23 11/01/23 10/31/23 09:00 Rx D3 10 mcg (400 unit) tablet (Oyster Shell Calcium-Vitamin D3) Vitamin D3 10 mcg PO DAILY 07/06/23 11/01/23 07/06/23 History triamterene 37.5 1 tab PO DAILY 07/06/23 11/01/23 07/06/23 History mg-hydrochlorothiazide 25 mg tablet (Maxzide-25mg) furosemide 40 mg tablet See Rx Instructions .Route 07/16/23 11/01/23 10/30/23 Rx .COMPLEX #30 tabs tamsulosin 0.4 mg capsule (Flomax) 0.4 mg PO DAILY frequency #30 caps 08/09/23 11/01/23 10/31/23 Rx amlodipine 5 mg tablet See Rx Instructions .Route 09/27/23 11/01/23 10/31/23 09:00 Rx .COMPLEX #90 tabs Allergies Allergy/AdvReac Type Severity Reaction Status Date / Time RAGWEED Allergy ALGY-Conges Uncoded 11/01/23 16:08 romulo PFSH Acute 2 PFSH: Medical History Prostate cancer Surgical History Status post bilateral hernia repair Status post appendectomy H/O prostate biopsy also by Dr. Franz in [place]. Home Family History Family/Other Cancer Hypertension Stroke Diabetes Father , at age 67-lung cancer No problems noted. Mother , at age 55 Stroke Social History Smoking and tobacco/nicotine status: never used tobacco/nicotine Quit status (tobacco/nicotine): has quit using Year quit tobacco: 1981 Alcohol intake: current Alcohol intake frequency: few times a month Substance/Drug Use: never Marital status: Current occupational status: retired Vitals/I&O/Wt Last Vital Signs Temp 97.4 F L 11/02/23 00:00 Pulse 81 11/02/23 00:00 Resp 18 11/02/23 00:00 BP 154/76 11/02/23 00:00 Pulse Ox 95 11/02/23 00:21 O2 Del Method Room Air 11/02/23 00:21 11/01/23 11/01/23 11/02/23 14:59 22:59 06:59 Intake Total 1000 / 1000 Output Total 10 / 10 Balance 990 / 990 Weight last 48 hrs Weight 79.56 kg Weight 79.379 kg Physical Exam 2 Narrative: General: No acute distress, AO x3 HEENT: PERRLA, pupils bilaterally equal and reactive, pallors not present Chest: Normal vesicular breath sounds, no added sounds, equal good air entry bilaterally CVS: S1-S2 regular, no murmurs, no tachycardia, no gallops, no rubs Abdomen: Soft, nontender, no organomegaly, bowel sounds present Neuro: No focal deficits, no facial deformity, AO x3, power 5/5 in all limbs Data 11/02/23 05:41 11/01/23 17:16 Micro: CT/CT pelvis wo con [id number] IMPRESSION: 1. No evidence of acute traumatic pathology. 2. Minor findings noted above including colonic diverticulosis and prostatomegaly. CT/CT thoracic spin wo con* [id number] IMPRESSION: 1. No acute traumatic pathology of the thoracic spine. T12 compression fracture again noted; see lumbar spine CT report for description. 2. Minor findings as above. CT/CT lumbar spine wo con* [id number] IMPRESSION: Moderate compression fracture of the L1 vertebral body without evidence of retropulsed fragment. No other acute traumatic pathology. Other findings including degenerative changes as detailed above. XR/XR hip BI 3-4V wo/w pel [id number] IMPRESSION: No acute bony pathology. CT/CT cervical spin wo con* [id number] IMPRESSION: 1. No evidence of acute traumatic pathology. 2. Degenerative changes detailed above. A&P Assessment and plan (1) Frequent falls: 73-year-old male with history of recurrent mechanical falls. No obvious cause has been attributed over the years. He is currently in physical therapy as an outpatient to help improve his gait and endurance. Patient has a history of prostate carcinoma for which she is currently undergoing radiation therapy, however episodes of falls predate his diagnosis. 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 Patient denies any current dizziness tinnitus Check orthostatics (2) Rhabdomyolysis: Rhabdomyolysis with creatinine kinase of 3200. Patient reports generalized muscle ache. IV hydration with normal saline at 75 cc an hour Recheck CK with a.m. labs Hold triamterene HCTZ for now to minimize risk for renal injury. Holding diuretics while on IV fluids. Qualifiers: Rhabdomyolysis type: traumatic Encounter type: initial encounter Qualified Code(s): T79.6XXA - Traumatic ischemia of muscle, initial encounter (3) Compression fracture: Compression fracture of the L1 vertebra Currently reports pain with attempting to turn sides, minimal movement. Morphine 2 mg IV every 4 hours alternating with oxycodone APAP for pain management. Continue home dose of gabapentin 200 mg twice daily Conservative medical management for the same continue home dose of gabapentin 200 mg twice daily PT OT eval and treat Plan DVT ppx: Heparin 5000 q12h Full code Attestations 2 Medical Necessity Statement*: Anticipate greater than 2 midnight stay Coding Level of Care Code Acute Code for [facility] Fwd Diagnoses Frequent falls R29.6 Traumatic rhabdomyolysis, initial encounter T79.6XXA Rhabdomyolysis type: traumatic Encounter type: initial encounter Compression fracture
[2023-11-01 23:50] LABS: Urine Appearance Clear (CLEAR); Urine Color Yellow (Yellow)
[2023-11-01 23:51] LABS: Add Urine Culture? No; Add Urine Microscopic? YES; Bacteria Urine TRACE /hpf; Bilirubin Urine Neg (Negative); Blood Urine 2+ (Negative); Glucose Urine UA Norm (Normal); Ketones Urine 1+ (Negative); Leukocyte Esterase Urine Negative (Negative); Mucus Urine 2+ /hpf; Nitrate Urine Negative (Negative); Protein Urine Neg (Negative); RBC Urine 0-4 /hpf (0-2); Specific Gravity, Urine 1.025 (1.005-1.030); Urobilinogen Urine Neg (Negative); pH Urine 5 (5-7)
[2023-11-01 23:54] LABS: Thyroid Stimulating Hormone 0.95 uIU/mL (0.27-4.20)
[2023-11-02] VITALS (14 sets, daily range): BP systolic 113–168; BP diastolic 59–80; PULSE 65–84; RESP 15–18; TEMP 36.3–37.2; O2SAT 92–96
[2023-11-02 00:22] LABS: Iron 35 ug/dL (59-158); Percent Saturation 14.5 % (20-50); Total Iron Binding Capacity 241 mcg/dl; Unsaturated Iron Binding 206 ug/dL (112-347)
[2023-11-02 00:39] LABS: Vitamin B12 253 pg/mL (232-1245)
[2023-11-02 05:53] LABS: Basophils % 0.3 %; Eosinophils # 0.2 10^3/uL (0.0-0.8); Eosinophils % 2.6 %; Hematocrit 40.8 % (37-53); Lymphocytes % 12.2 %; Mean Corpuscular HGB Conc 33.8 g/dL (30-55); Mean Corpuscular Hemoglobin 30.2 pg (27-33); Mean Corpuscular Volume 89.3 fl (82-101); Mean Platelet Volume 9.8 fL (7.4-10.4); Monocytes % 13.3 %; Neutrophils # 5.59 10^3/uL (1.8-7.7); Neutrophils % 71.2 %; Nucleated Red Blood Cells % 0 %; Platelet Count 163 10^3/cmm (157-399); Red Blood Count 4.57 10^6/uL (3.85-5.65); Red Cell Distribution Width 12.5 % (12.1-15.1); White Blood Count 7.84 10^3/uL (3.29-11.43)
[2023-11-02 06:12] LABS: Estmated Average Glucose 114; Hemoglobin A1C 5.6 % (4.0-6.0)
[2023-11-02 06:17] LABS: Alanine Aminotransferase 26 U/L (0-41); Albumin Level 3.4 g/dL (3.5-5.2); Alkaline Phosphatase 57 U/L (40-130); Aspartate Amino Transferase 77 U/L (0-40); Blood Urea Nitrogen 16 mg/dL (8-23); Calcium 8.7 mg/dL (8.5-10.5); Carbon Dioxide 24 mmol/L (22-29); Chloride 105 mmol/L (98-107); Globulin 2.8 g/dL (1.3-4.6); Glucose 116 mg/dL (65-115); Magnesium 1.9 mg/dL (1.7-2.3); Osmolality Calculated 288 mOsm/kg (285-295); Phosphorus 2.8 mg/dL (2.5-4.5); Sodium 138 mmol/L (136-145); Total Bilirubin 1.2 mg/dL (0.15-1.2); Total Protein 6.2 g/dL (6.6-8.7)
[2023-11-02] MEDS: tamsulosin 0.4 mg Capsule 0.400000000000000022 MG PO (08:26)
[2023-11-02] MEDS: gabapentin 100 mg Capsule 200 MG PO ×2 (08:26→18:45)
[2023-11-02] MEDS: heparin 5,000 unit/mL INJ 1 mL 5000 UNIT SUBCUT ×2 (08:26→20:08)
[2023-11-02] MEDS: metoprolol succinate ER (24 HR) 25 mg Tablet PO ×2 (08:26→18:45)
[2023-11-02] MEDS: famotidine 20 mg Tablet PO ×2 (08:26→18:45)
[2023-11-02] MEDS: oxyCODONE-APAP 5-325 mg Tablet 1 TAB PO (08:29)
[2023-11-02] MEDS: fentaNYL 25 mcg Patch 1 PATCH TRANSDERMA (10:33)
[2023-11-02] MEDS: cyclobenzaprine 10 mg Tablet PO (10:34)
[2023-11-02] MEDS: sodium chloride 0.9% 1,000 ML 75 ML IV ×2 (10:40→23:52)
--- NOTE | 2023-11-02 10:40 | CT_ITS ---
WS: [id number] CT HEAD TECHNIQUE: Noncontrast and contrast-enhanced CT of the head. CLINICAL INFORMATION: frequent falls, possible mets COMPARISON: CT 2014 DLP: 2113.[address] scans at [facility] use at least one of these dose optimization techniques: automated e xposure control; mA and/or kV adjustment per patient size (includes targeted exams where dose is matc hed to clinical indication); or iterative reconstruction. FINDINGS: No evidence intracranial hemorrhage or mass effect. Ventricular system and basal cisterns are patent. 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 Ex vacuo dilatation of the RIGHT fr ontal horn. Mild small vessel changes. Moderate parenchymal volume loss. Intracranial vascular calcif ication. Mild mucosal thickening in the ethmoid air cells. Mastoid air cells are well aerated. Normal posterio r nasopharynx. No abnormal intracranial enhancement. No enhancing intracranial lesions. IMPRESSION: 1. No evidence of intracranial hemorrhage or mass effect. 2. No abnormal intracranial enhancement. 3. 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 Ex vacuo dilatation RI GHT frontal horn. 4. Mild small vessel changes with moderate parenchymal volume loss.
[2023-11-02] MEDS: iohexol 350 mg/mL 500 mL Btl (per mL) IV (13:23)
--- NOTE | 2023-11-02 13:57 | P.PN_ITS ---
Subjective 2 Subjective: No acute events overnight. Patient complaining of extreme muscle spasm in the morning today because of which she was not able to work with physical therapy. She was started on Flexeril and fentanyl patch after which she improved. Seen with caregiver at bedside. Patient denies any nausea, vomiting, headache. Denies any dizziness. Vitals/I&O/Wt Last Vital Signs Temp 97.8 F 11/02/23 11:12 Pulse 78 11/02/23 11:12 Resp 16 11/02/23 11:12 BP 159/70 11/02/23 11:12 Pulse Ox 96 11/02/23 11:12 O2 Del Method Room Air 11/02/23 11:12 11/01/23 11/02/23 11/02/23 22:59 06:59 14:59 Intake Total 1000 / 1000 0 / 1000 1461.25 / 1461.25 Output Total 250 / 260 300 / 300 Balance 990 / 990 -250 / 740 1161.25 / 1161.25 Weight last 48 hrs Weight 83.642 kg Weight 79.56 kg Weight 79.379 kg Physical Exam 2 Narrative: General: No acute distress, AO x3 HEENT: PERRLA, pupils bilaterally equal and reactive, pallors not present Chest: Normal vesicular breath sounds, no added sounds, equal good air entry bilaterally CVS: S1-S2 regular, no murmurs, no tachycardia, no gallops, no rubs Abdomen: Soft, nontender, no organomegaly, bowel sounds present Neuro: No focal deficits, no facial deformity, AO x3, power 5/5 in all limbs Data 11/02/23 05:41 11/02/23 05:41 A&P Assessment and plan (1) Frequent falls: 73-year-old male with history of recurrent mechanical falls. No obvious cause has been attributed over the years. He is currently in physical therapy as an outpatient to help improve his gait and endurance. Patient has a history of prostate carcinoma for which she is currently undergoing radiation therapy, however episodes of falls predate his diagnosis. 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 Patient denies any current dizziness tinnitus Orthostatic pending as patient is not able to work with physical therapy because of back spasm for now. Blood pressure so far stable. Vitamin B12 levels normal. TSH normal. Check thiamine levels. Could be in setting of high-dose of gabapentin though on the chart only says 200 mg twice daily. He states recently his dose of gabapentin has been increased though is not sure at what strength. He states he takes 2 tablets in the morning and 2 tablets in the evening. Will confirm with the pharmacy. Patient does have history of bradycardia in the past. Telemetry. (2) Rhabdomyolysis: Rhabdomyolysis with creatinine kinase of 3200. Patient reports generalized muscle ache. IV hydration with normal saline at 75 cc an hour Recheck CK with a.m. labs Hold triamterene HCTZ for now to minimize risk for renal injury. Qualifiers: Encounter type: initial encounter Rhabdomyolysis type: traumatic Qualified Code(s): T79.6XXA - Traumatic ischemia of muscle, initial encounter (3) Compression fracture: Compression fracture of the L1 vertebra. Also has history of compression fracture of T12 in the past. Continue with pain management morphine 2 mg every 4 hours as needed, oxycodone 5 mg every 6 hours as needed, fentanyl patch 25 mcg, Flexeril 5 mg 3 times daily as needed. Continue with home dose of gabapentin 200 mg twice daily. Will consult Dr. Sanchez for further recommendations. Dr. Sanchez is requesting an MRI so we will go ahead and do the same. PT/OT evaluation. 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 States his friend Omid will be the DPOA. 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
--- NOTE | 2023-11-02 13:59 | MRR_ITS ---
PROCEDURE INFORMATION: Exam: MR Lumbar Spine Without Contrast Exam date and time: 11/02/2023 6:17 PM Age: 73 years old Clinical indication: Low back pain; Additional info: Compression fracture TECHNIQUE: Imaging protocol: Magnetic resonance imaging of the lumbar spine without contrast. COMPARISON: 1. CT lumbar spine wo con* [id number] 11/01/2023 4:21 PM 2. CR XR lumbar spine 2-3V* [id number] 06/02/2022 12:20 PM FINDINGS: Bones/joints: Spinal alignment is normal. Moderate superior endplate compression fracture of L1. No bone marrow edema. Spinal cord: The visible portion of the spinal cord is normal. The tip of the conus medullaris lies at L2. T12-L1: No disc bulge or herniation. Mild posterior osteophytic ridge. Mild bilateral facet and ligamentous hypertrophy. No spinal canal or neural foraminal stenosis. L1-L2: Mild generalized disc bulge. Mild bilateral facet and ligamentous hypertrophy. Mild spinal canal stenosis. No significant neural foraminal stenosis. L2-L3: No significant disc bulge or herniation. Mild bilateral facet and ligamentous hypertrophy. No spinal canal stenosis. No neural foraminal stenosis. L3-L4: Mild generalized disc bulge. No posterior disc herniation. Mild bilateral facet and ligamentous hypertrophy. Mild spinal canal stenosis. Mild bilateral neural foraminal stenosis. L4-L5: Mild generalized disc bulge. Moderate bilateral facet and ligamentous hypertrophy. Mild spinal canal stenosis. There is narrowing of subarticular space on the left without nerve root compression. Moderate left neural foraminal stenosis. L5-S1: No significant disc bulge or herniation. Moderate bilateral facet and ligamentous hypertrophy. No spinal canal stenosis. No neural foraminal stenosis. The right L5 nerve root is displaced inferiorly by prominent fat in the neural foramen. Soft tissues: There is asymmetric fatty atrophy of the left upper lumbar paraspinous musculature. Visible intra-abdominal soft tissues are unremarkable. MR/MR lumbar spine wo con* [id number] IMPRESSION: 1. Moderate superior endplate compression fracture at L1 without bone marrow edema consistent with chronic fracture. The finding is new since 06/02/2022. 2. Multilevel mild to moderate lumbar disc and facet degeneration producing mild spinal stenosis at L1-L2, L3-L4 and L4-L5, and moderate left neural foraminal stenosis at L4-L5. Mild neural foraminal stenosis at L3-L4 bilaterally.
--- NOTE | 2023-11-02 13:59 | MRR_ITS ---
PROCEDURE INFORMATION: Exam: MR Thoracic Spine Without Contrast Exam date and time: 11/02/2023 6:03 PM Age: 73 years old Clinical indication: Pain in thoracic spine; Additional info: Compression fracture TECHNIQUE: Imaging protocol: Magnetic resonance imaging of the thoracic spine without contrast. COMPARISON: 1. CT thoracic spin wo con* [id number] 11/01/2023 4:21 PM 2. CR XR lumbar spine 2-3V* [id number] 06/02/2022 12:20 PM FINDINGS: Bones/joints: Spinal alignment is normal. Thoracic vertebral body height is maintained. There is a moderate superior endplate compression deformity of L1. No bone marrow edema. No visible disc herniation. No thoracic spinal canal stenosis. Spinal cord: The spinal cord is unremarkable. There is no abnormal signal or cord compression. Soft tissues: Paraspinal soft tissues are unremarkable. Visible intra-abdominal soft tissues are unremarkable. Visible intrathoracic soft tissues are unremarkable. MR/MR thoracic spin wo con* [id number] IMPRESSION: 1. Intact thoracic spine. 2. Moderate L1 superior endplate compression fracture without bone marrow edema consistent with a chronic fracture. The finding is new since 06/02/2022..
[2023-11-02] MEDS: morphine 4 mg/mL SDV 1 mL 2 MG IVP (17:48)
[2023-11-02] MEDS: calcium carb-vit d 500mg-200unit 1 Tablet 1 EACH PO (18:45)
[2023-11-02] MEDS: cyclobenzaprine 10 mg Tablet 5 MG PO (18:45)
[2023-11-02] MEDS: amlodipine 5 mg Tablet PO (20:08)
[2023-11-03] VITALS (9 sets, daily range): BP systolic 126–167; BP diastolic 63–78; PULSE 61–70; RESP 16–18; TEMP 36.5–37.3; O2SAT 93–95; BMI 29.4
[2023-11-03 05:35] LABS: Basophils % 0.5 %; Eosinophils # 0.4 10^3/uL (0.0-0.8); Eosinophils % 6.4 %; Lymphocytes # 1.3 10^3/uL (0.8-4.8); Lymphocytes % 21.1 %; Mean Corpuscular HGB Conc 33.2 g/dL (30-55); Mean Corpuscular Hemoglobin 30.5 pg (27-33); Mean Corpuscular Volume 91.8 fl (82-101); Mean Platelet Volume 10.3 fL (7.4-10.4); Monocytes # 0.9 10^3/uL (0.2-0.9); Monocytes % 14.2 %; Neutrophils # 3.53 10^3/uL (1.8-7.7); Neutrophils % 57.6 %; Nucleated Red Blood Cells % 0 %; Platelet Count 156 10^3/cmm (157-399); Red Blood Count 4.03 10^6/uL (3.85-5.65); Red Cell Distribution Width 12.7 % (12.1-15.1); White Blood Count 6.12 10^3/uL (3.29-11.43)
[2023-11-03 06:17] LABS: Alanine Aminotransferase 28 U/L (0-41); Albumin Level 2.9 g/dL (3.5-5.2); Alkaline Phosphatase 52 U/L (40-130); Aspartate Amino Transferase 58 U/L (0-40); Blood Urea Nitrogen 14 mg/dL (8-23); Calcium 8.3 mg/dL (8.5-10.5); Carbon Dioxide 24 mmol/L (22-29); Chloride 105 mmol/L (98-107); Creatinine Clr Calc Pharmacy 71.5582; Globulin 2.6 g/dL (1.3-4.6); Glucose 97 mg/dL (65-115); Osmolality Calculated 288 mOsm/kg (285-295); Sodium 139 mmol/L (136-145); Total Bilirubin 1.1 mg/dL (0.15-1.2); Total Protein 5.5 g/dL (6.6-8.7)
[2023-11-03 06:22] LABS: Anion Gap 13.7 (5-19); Potassium 3.7 mmol/L (3.5-5.1)
[2023-11-03 06:25] LABS: Creatine Phosphokinase 1340 U/L (39-308)
--- NOTE | 2023-11-03 08:33 | MR_ITS ---
WS: [id number] MRI CERVICAL SPINE NONCONTRAST HISTORY: Cervical spondylosis with myelopathy COMPARISON: Cervical spine CT 11/01/2023 Technique: Multiplanar, multisequence noncontrast imaging of the cervical spine. Curvature and straightening of the normal cervical lordosis. Although subtle there is some increased T2 signal in the cervical cord centered at C5-6. Linear stria tions of increased T2 signal are suspicious for focal areas of cord contusion or myelomalacia. Craniocervical junction, C1 and C2 relationship, odontoid process and soft tissues are normal. C2-C3: No stenosis. C3-C4: Marked osteophytic ridging with facet arthritis. Effacement of ventral CSF. Moderate central w ith moderate to severe bilateral foraminal stenosis. C4-C5: Large central disc osteophyte complex extending into the foramen. Facet joint arthritis. Sever e central and bilateral foraminal stenosis. C5-C6: Marked osteophytic ridging with disc and osteophyte and facet arthritis contributing to severe central and bilateral foraminal stenosis. Nerve roots are being displaced by large disc osteophyte. C6-C7: Large central disc osteophyte. Disc osteophytes extend into the foramina. Moderate to severe c entral and bilateral foraminal stenosis. C7-T1: No significant stenosis. Paraspinal soft tissue are normal. IMPRESSION: 1. Advanced degenerative spondylitic changes throughout the cervical spine. 2. There is slight increased T2 signal in the cervical cord at the C5-6 level. Very suspicious for m yelomalacia. Small amount of cord edema is not excluded. There is no hemorrhage. 3. C4-5 and C5-6: Severe central and bilateral foraminal stenosis. Large disc osteophytes contributi ng to the stenosis. Most significant at C4-5. 4. C3-4: Moderate central with moderate to severe bilateral foraminal stenosis due to disc osteophyt e disease. 5. C6-7: Moderate to severe central and bilateral foraminal stenosis due to disc and osteophyte dise ase.
--- NOTE | 2023-11-03 08:34 | XR_ITS ---
WS: [id number] Left knee, AP and lateral views, 11/03/2023 Clinical Data: TKA with fall and pain Comparison: Left knee, 01/06/2021 Findings: There is a knee arthroplasty. No periprosthetic fractures or loosening is seen. The soft tissues are normal. Impression: Stable left knee arthroplasty.
[2023-11-03] MEDS: oxyCODONE-APAP 5-325 mg Tablet 1 TAB PO ×2 (09:02→16:29)
[2023-11-03] MEDS: cyclobenzaprine 10 mg Tablet 5 MG PO (09:02)
[2023-11-03] MEDS: tamsulosin 0.4 mg Capsule 0.400000000000000022 MG PO (09:04)
[2023-11-03] MEDS: heparin 5,000 unit/mL INJ 1 mL 5000 UNIT SUBCUT ×2 (09:04→19:33)
[2023-11-03] MEDS: calcium carb-vit d 500mg-200unit 1 Tablet 1 EACH PO ×2 (09:04→17:34)
[2023-11-03] MEDS: famotidine 20 mg Tablet PO ×2 (09:04→17:35)
[2023-11-03] MEDS: metoprolol succinate ER (24 HR) 25 mg Tablet PO ×2 (09:04→17:34)
--- NOTE | 2023-11-03 09:35 | P.CONIM_ITS ---
Providers/Reason For Consult 2 Consulting Physician/Specialty*: Hospitalist Reason for Consult*: L1 compression fracture Attending Physician: Deandre Kunz MD Primary Care Provider: Davin Collier DO History of Present Illness History of Present Illness Magdy Mancilla is a 73 year old male been having back pain on and off for years. This is per the daughter. Patient has also been complaining of balance issues as well as pain radiating down his legs. However recently he just fell was made to the ER with back pain. MRI was done which does not show any acute fractures. Patient does have lumbar stenosis and likely flared this up as well as contusion to the muscle and patient stated that muscle relaxers that he was given yesterday did help his pain. Patient is also complaining of some left knee pain where he has had a previous total knee. Review of Systems 2 General: Reports: 10 or more systems reviewed and unremarkable except in HPI and below Const: Denies: fever(s), chills or body aches Eyes: Denies: change in vision, blurry vision or photophobia ENMT: Reports: hoarseness; Denies: throat pain, enlarged tonsils, odynophagia or nasal congestion Card: Denies: chest pain, palpitations, irregular heart rhythm, edema, swelling of feet/ankles, lightheadedness, pre-syncope, dyspnea on exertion or orthopnea Resp: Denies: dyspnea, productive cough, non-productive cough, wheezing, stridor, pain on inspiration, change in phlegm color, hemoptysis or chest congestion GI: Denies: abdominal pain, nausea, vomiting, hematemesis, coffee ground emesis, dysphagia, heartburn, diarrhea, constipation, GI cramping, change in stool character, hematochezia or melena : Denies: flank pain, dysuria, urinary frequency, urinary urgency, urinary hesitancy or hematuria Musc: Denies: neck pain, back pain, extremity pain, joint swelling, joint warmth or deformity Neuro: Denies: headache(s), numbness in extremities, weakness in extremities, sensory changes, difficulty walking, frequent falls, dizziness, vertigo, behavioral changes, Slurred speech present or seizure-like activity Psych: Denies: anxiety, depression, suicidal ideation or homicidal ideation Endo: Denies: polyuria, polydipsia, tired all the time, cold intolerance or hot flashes Fabricio/Lymph: Denies: easy bruising or easy bleeding Medications/Allergies Home Medications Medication Instructions Recorded Confirmed Last Taken Type simvastatin 20 mg tablet 20 mg PO DAILY #30 tabs 10/25/22 11/01/23 10/31/23 Rx metoprolol succinate 25 mg 25 mg PO BID #180 tabs 11/23/22 11/01/23 10/31/23 09:00 Rx tablet,extended release 24 hr gabapentin 100 mg capsule 200 mg PO BID 12/15/22 11/01/23 10/31/23 History potassium chloride 20 mEq 20 meq PO DAILY #90 tabs 02/17/23 11/01/23 07/06/23 Rx tablet,extended release calcium carbonate 500 mg-vitamin 1 tab PO BID #60 tabs 06/01/23 11/01/23 10/31/23 09:00 Rx D3 10 mcg (400 unit) tablet (Oyster Shell Calcium-Vitamin D3) Vitamin D3 10 mcg PO DAILY 07/06/23 11/01/23 07/06/23 History triamterene 37.5 1 tab PO DAILY 07/06/23 11/01/23 07/06/23 History mg-hydrochlorothiazide 25 mg tablet (Maxzide-25mg) furosemide 40 mg tablet See Rx Instructions .Route 07/16/23 11/01/23 10/30/23 Rx .COMPLEX #30 tabs tamsulosin 0.4 mg capsule (Flomax) 0.4 mg PO DAILY frequency #30 caps 08/09/23 11/01/23 10/31/23 Rx amlodipine 5 mg tablet See Rx Instructions .Route 09/27/23 11/01/23 10/31/23 09:00 Rx .COMPLEX #90 tabs Allergies Allergy/AdvReac Type Severity Reaction Status Date / Time RAGWEED Allergy ALGY-Conges Uncoded 11/01/23 16:08 romulo Current Medications Generic Name Dose Route Start Last Admin Trade Name Dutch PRN Reason Stop Dose Admin Amlodipine Besylate 5 mg 11/01/23 20:30 11/02/23 20:08 Amlodipine 5 Mg Tablet PO 5 mg QD DARION Administration Calcium Carbonate 1 each 11/02/23 18:00 11/03/23 09:04 Calcium Carb-Vit D 500mg-200unit 1 Tablet PO 1 each BID DARION Administration Cyclobenzaprine HCl 5 mg 11/02/23 10:41 11/03/23 09:02 Cyclobenzaprine 10 Mg Tablet PO 5 mg TID PRN Administration MUSCLE SPASMS Famotidine 20 mg 11/02/23 09:00 11/03/23 09:04 Famotidine 20 Mg Tablet PO 20 mg BID DARION Administration Fentanyl 1 patch 11/02/23 11:00 11/02/23 10:33 Fentanyl 25 Mcg Patch TRANSDERMA 1 patch Q72H DARION Administration Gabapentin 200 mg 11/02/23 09:00 11/03/23 09:01 Gabapentin 100 Mg Capsule PO Not Given BID DARION Heparin Sodium (Porcine) 5,000 unit 11/01/23 20:30 11/03/23 09:04 Heparin 5,000 Unit/Ml Inj 1 Ml SUBCUT 5,000 unit Q12H DARION Administration Sodium Chloride 1,000 mls @ 75 mls/hr 11/01/23 20:30 11/02/23 23:52 Sodium Chloride 0.9% IV 75 mls/hr .[id number] DARION Administration Metoprolol Succinate 25 mg 11/02/23 09:00 11/03/23 09:04 Metoprolol Succinate Er (24 Hr) 25 Mg Tablet PO 25 mg BID DARION Administration Morphine Sulfate 2 mg 11/01/23 20:30 11/02/23 17:48 Morphine 4 Mg/Ml Sdv 1 Ml IVP 2 mg Q4H PRN Administration SEVERE PAIN Oxycodone/Acetaminophen 1 tab 11/01/23 20:30 11/03/23 09:02 Oxycodone-Apap 5-325 Mg Tablet PO 1 tab Q6H PRN Administration SEVERE PAIN Tamsulosin HCl 0.4 mg 11/02/23 09:00 11/03/23 09:04 Tamsulosin 0.4 Mg Capsule PO 0.4 mg DAILY DARION Administration PFSH Acute 2 PFSH: Medical History (Updated 11/03/23 @ 09:37 by Manjinder Sanchez DO) Systolic blood pressure less than 140 mm Hg Back pain Painful total knee replacement, left 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 Franz [place] Family History Family/Other Cancer Hypertension Stroke Diabetes Father , at age 67-lung cancer No problems noted. Mother , at age 55 Stroke Social History Smoking and tobacco/nicotine status: never used tobacco/nicotine Quit status (tobacco/nicotine): has quit using Year quit tobacco: 1981 Alcohol intake: current Alcohol intake frequency: few times a month Substance/Drug Use: never Marital status: Current occupational status: retired Vitals/I&O/Wt Last Vital Signs Temp 98.2 F 11/03/23 07:16 Pulse 63 11/03/23 07:16 Resp 18 11/03/23 09:02 BP 133/73 11/03/23 07:16 Pulse Ox 93 11/03/23 07:16 O2 Del Method Room Air 11/02/23 16:00 11/02/23 11/03/23 11/03/23 22:59 06:59 14:59 Intake Total 720 / 2181.25 990 / 3171.25 240 / 240 Output Total 250 / 550 Balance 720 / 1881.25 740 / 2621.25 240 / 240 Weight last 48 hrs Weight 182 lb 3.2 oz Weight 188 lb Weight 184 lb 6.4 oz Weight 175 lb 6.4 oz Weight 175 lb Physical Exam 2 Narrative: Pain to palpation over his left knee. Data 11/03/23 04:41 11/03/23 04:41 A&P Assessment and plan (1) Lumbar stenosis with neurogenic claudication: Plan at this point is to get patient's pain under control. Will have him follow-up in the clinic to workup his lumbar stenosis. Patient's CT of his cervical spine shows presumed stenosis. With patient's balance issues I am concerned about myelopathy in the cervical spine. Will order an MRI of the cervical spine. Patient is also complaining of left knee pain with a total knee. At this point we will get an x-ray of his left knee to rule out any injuries to this. Low back pain treated with pain meds and muscle relaxants. Told the patient he does not need to wear the brace because of fractures old. However patient stated that the brace does make him feel better. So I told him he can wear it as needed as needed Coding Level of Care Code Acute Code for [facility] Fwd Diagnoses Lumbar stenosis with neurogenic claudication M48.062
--- NOTE | 2023-11-03 13:37 | PM.PN ---
Subjective Subjective: No acute events overnight. Patient has remained hemodynamically stable and afebrile. Today morning seen working with occupational therapy. Patient has received IV pain medication yesterday afternoon. Vitals/I&O/Wt Last Vital Signs Temp 98.2 F 11/03/23 07:16 Pulse 63 11/03/23 07:16 Resp 18 11/03/23 09:02 BP 133/73 11/03/23 07:16 Pulse Ox 93 11/03/23 07:16 O2 Del Method Room Air 11/02/23 16:00 11/02/23 11/03/23 11/03/23 22:59 06:59 14:59 Intake Total 720 / 2181.25 990 / 3171.25 1347.5 / 1347.5 Output Total 250 / 550 Balance 720 / 1881.25 740 / 2621.25 1347.5 / 1347.5 Weight last 48 hrs Weight 82.645 kg Weight 82.645 kg Weight 85.275 kg Weight 83.642 kg Weight 79.56 kg Weight 79.379 kg Physical Exam Narrative: General: No acute distress, AO x3 HEENT: PERRLA, pupils bilaterally equal and reactive, pallors not present Chest: Normal vesicular breath sounds, no added sounds, equal good air entry bilaterally CVS: S1-S2 regular, no murmurs, no tachycardia, no gallops, no rubs Abdomen: Soft, nontender, no organomegaly, bowel sounds present Neuro: No focal deficits, no facial deformity, AO x3, power 5/5 in all limbs Data 11/03/23 04:41 11/03/23 04:41 A&P Assessment and plan (1) Frequent falls: 73-year-old male with history of recurrent mechanical falls. No obvious cause has been attributed over the years. He is currently in physical therapy as an outpatient to help improve his gait and endurance. Patient has a history of prostate carcinoma for which she is currently undergoing radiation therapy, however episodes of falls predate his diagnosis. 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 Patient denies any current dizziness tinnitus Orthostatic negative. CT head done yesterday shows chronic right sided frontal lobe stroke with ex vacuo dilatation of right frontal horn. Vitamin B12 levels normal. TSH normal. (2) Rhabdomyolysis: Resolving. Down to 1300. Patient's oral intake is good. Will stop IV fluids. Hold triamterene HCTZ for now to minimize risk for renal injury. Qualifiers: Encounter type: initial encounter Rhabdomyolysis type: traumatic Qualified Code(s): T79.6XXA - Traumatic ischemia of muscle, initial encounter (3) Compression fracture: Appreciate neurosurgeon recommendations. MRI thoracic and lumbar spine consistent with chronic fractures. MRI cervical spine as per neurosurgical team. Plan for conservative treatment with physical therapy and pain control for now. Back brace. Continue with PT and OT. Continue with pain management morphine 2 mg every 4 hours as needed, oxycodone 5 mg every 6 hours as needed, fentanyl patch 25 mcg, Flexeril 5 mg 3 times daily as needed. (4) Blood transfusion declined because patient is Orthodoxy: (5) Bradycardia: (6) Hx of prostatic malignancy: Plan DVT ppx: Heparin 5000 q12h Full code. States his friend Omid will be the DPOA. Also states he is [employer] so he does not accept blood products Discharge plan: Discussed further discharge planning with patient and daughter at bedside. Options discussed were home with home health at daughter's house versus SNF versus acute rehab. We discussed that given his chronic fractures, pain patient would benefit from rehab either acute or at SNF. Patient verbalized understanding and is agreeable. Case management on board. Attestations Medical Necessity Statement*: Requires further hospitalization for management of back pain in setting of chronic T12 and L1 fracture, recurrent falls most likely in setting of frontal lobe stroke in a patient who requires extensive rehab by safe discharge planning is sought. Diagnoses Frequent falls R29.6 Traumatic rhabdomyolysis, initial encounter T79.6XXA Encounter type: initial encounter Rhabdomyolysis type: traumatic Compression fracture Blood transfusion declined because patient is Orthodoxy Z53.1 Bradycardia R00.1 Hx of prostatic malignancy Z85.46
--- NOTE | 2023-11-03 16:22 | PM.PN ---
Vitals/I&O/Wt Last Vital Signs Temp 98.2 F 11/03/23 07:16 Pulse 63 11/03/23 07:16 Resp 18 11/03/23 09:02 BP 133/73 11/03/23 07:16 Pulse Ox 93 11/03/23 07:16 O2 Del Method Room Air 11/02/23 16:00 11/03/23 11/03/23 11/03/23 06:59 14:59 22:59 Intake Total 990 / 3171.25 1347.5 / 1347.5 Output Total 250 / 550 Balance 740 / 2621.25 1347.5 / 1347.5 Weight last 48 hrs Weight 182 lb 3.2 oz Weight 182 lb 3.2 oz Weight 188 lb Weight 184 lb 6.4 oz Weight 175 lb 6.4 oz Data 11/03/23 04:41 11/03/23 04:41 A&P Assessment and plan (1) Cervical spondylosis with myelopathy: Patient cervical MRI shows severe stenosis C4-5 C5-6 C6-7. He has myelomalacia. This compression of the spinal cord in the cervical spine likely is contributing to his balance issues and causing him to fall. Patient's lumbar pain is eased from this morning however his leg pain is worse. Likely irritated some nerves in the fall due to his lumbar stenosis. X-rays of the knee show total knee in good position and do not see any evidence of any fractures. At this point discussed with the family just have the patient follow-up outpatient to follow the cervical spine and decide if they want to do any type of surgery. At this point I would not acutely do any surgery on his neck. Attestations Medical Necessity Statement*: Pain control Coding Level of Care Code Acute Code for [facility] Fwd Diagnoses Cervical spondylosis with myelopathy M47.12
[2023-11-03] MEDS: gabapentin 100 mg Capsule 200 MG PO (17:34)
[2023-11-03] MEDS: amlodipine 5 mg Tablet PO (19:33)
[2023-11-04] VITALS (12 sets, daily range): BP systolic 128–192; BP diastolic 59–76; PULSE 49–66; RESP 16–18; TEMP 36.6–37.1; O2SAT 94–96; BMI 29.5
[2023-11-04] MEDS: calcium carb-vit d 500mg-200unit 1 Tablet 1 EACH PO ×2 (08:24→18:04)
[2023-11-04] MEDS: oxyCODONE-APAP 5-325 mg Tablet 1 TAB PO ×3 (08:24→19:17)
[2023-11-04] MEDS: cyclobenzaprine 10 mg Tablet 5 MG PO ×3 (08:25→23:13)
[2023-11-04] MEDS: famotidine 20 mg Tablet PO ×2 (08:25→18:04)
[2023-11-04] MEDS: heparin 5,000 unit/mL INJ 1 mL 5000 UNIT SUBCUT ×2 (08:25→19:18)
[2023-11-04] MEDS: gabapentin 100 mg Capsule 200 MG PO ×2 (08:25→18:04)
[2023-11-04] MEDS: metoprolol succinate ER (24 HR) 25 mg Tablet PO ×2 (08:25→18:04)
[2023-11-04] MEDS: tamsulosin 0.4 mg Capsule 0.400000000000000022 MG PO (08:25)
--- NOTE | 2023-11-04 16:10 | PM.PN ---
Subjective Subjective: No acute events overnight. Patient has remained hemodynamically stable and afebrile. Today morning seen sitting up in chair with daughter at bedside. Patient states he is feeling better. Pain is controlled. Vitals/I&O/Wt Last Vital Signs Temp 98.3 F 11/04/23 11:20 Pulse 66 11/04/23 14:00 Resp 16 11/04/23 15:22 BP 128/75 11/04/23 11:20 Pulse Ox 96 11/04/23 11:20 O2 Del Method Room Air 11/04/23 11:20 11/04/23 11/04/23 11/04/23 06:59 14:59 22:59 Intake Total 240 / 240 Output Total 100 / 100 100 / 100 Balance -100 / 1247.5 240 / 240 -100 / 140 Weight last 48 hrs Weight 83.143 kg Weight 83.143 kg Weight 82.645 kg Weight 82.645 kg Weight 85.275 kg Physical Exam Narrative: General: No acute distress, AO x3 HEENT: PERRLA, pupils bilaterally equal and reactive, pallors not present Chest: Normal vesicular breath sounds, no added sounds, equal good air entry bilaterally CVS: S1-S2 regular, no murmurs, no tachycardia, no gallops, no rubs Abdomen: Soft, nontender, no organomegaly, bowel sounds present Neuro: No focal deficits, no facial deformity, AO x3, power 5/5 in all limbs Data 11/03/23 04:41 11/03/23 04:41 A&P Assessment and plan (1) Frequent falls: 73-year-old male with history of recurrent mechanical falls. No obvious cause has been attributed over the years. He is currently in physical therapy as an outpatient to help improve his gait and endurance. Patient has a history of prostate carcinoma for which she is currently undergoing radiation therapy, however episodes of falls predate his diagnosis. 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 Patient denies any current dizziness tinnitus Orthostatic negative. CT head done yesterday shows chronic right sided frontal lobe stroke with ex vacuo dilatation of right frontal horn. Vitamin B12 levels normal. TSH normal. (2) Rhabdomyolysis: Resolving. Down to 1300. Patient's oral intake is good. Will stop IV fluids. Hold triamterene HCTZ for now to minimize risk for renal injury. Qualifiers: Encounter type: initial encounter Rhabdomyolysis type: traumatic Qualified Code(s): T79.6XXA - Traumatic ischemia of muscle, initial encounter (3) Compression fracture: Appreciate neurosurgeon recommendations. MRI thoracic and lumbar spine consistent with chronic fractures. MRI cervical spine as per neurosurgical team. Plan for conservative treatment with physical therapy and pain control for now. Back brace. Continue with PT and OT. Continue with pain management morphine 2 mg every 4 hours as needed, oxycodone 5 mg every 6 hours as needed, fentanyl patch 25 mcg, Flexeril 5 mg 3 times daily as needed. (4) Blood transfusion declined because patient is Christianity: (5) Bradycardia: (6) Hx of prostatic malignancy: Plan DVT ppx: Heparin 5000 q12h Full code. States his friend Omid will be the DPOA. Also states he is Christianity so he does not accept blood products Discharge plan: Discussed further discharge planning with patient and daughter at bedside. Options discussed were home with home health at daughter's house versus SNF versus acute rehab. We discussed that given his chronic fractures, pain patient would benefit from rehab either acute or at SNF. Patient verbalized understanding and is agreeable. Case management on board. Patient given lab holiday today. Plan for the day: Appreciate cervical MRI results. Continue with current regimen including pain medication and antihypertensive. Blood pressure is at goal. Continue physical therapy. Appreciate orthopedic recommendations. Will check CPK in AM. If normalizing will plan to start on statins. Continue with baby aspirin for history of remote stroke. Patient awaiting acceptance to SNF versus acute rehab further rehabitation. Attestations Medical Necessity Statement*: Requires further hospitalization for management of T12 and L1 fractures requiring extensive physical therapy while safe discharge planning is sought as patient is at high risk of frequent falls and further fractures by himself at home Diagnoses Frequent falls R29.6 Traumatic rhabdomyolysis, initial encounter T79.6XXA Encounter type: initial encounter Rhabdomyolysis type: traumatic Compression fracture Blood transfusion declined because patient is Christianity Z53.1 Bradycardia R00.1 Hx of prostatic malignancy Z85.46
[2023-11-04] MEDS: amlodipine 5 mg Tablet PO (19:18)
[2023-11-05] VITALS (11 sets, daily range): BP systolic 119–159; BP diastolic 57–91; PULSE 57–72; RESP 16–18; TEMP 36.7–37.1; O2SAT 94–96
[2023-11-05] MEDS: oxyCODONE-APAP 5-325 mg Tablet 1 TAB PO ×3 (01:14→19:52)
[2023-11-05 03:27] LABS: Basophils # 0.1 10^3/uL (0.0-0.1); Basophils % 1.1 %; Eosinophils # 0.5 10^3/uL (0.0-0.8); Hematocrit 38.3 % (37-53); Lymphocytes # 1.4 10^3/uL (0.8-4.8); Lymphocytes % 32.9 %; Mean Corpuscular HGB Conc 33.4 g/dL (30-55); Mean Corpuscular Hemoglobin 30.2 pg (27-33); Mean Corpuscular Volume 90.3 fl (82-101); Mean Platelet Volume 9.9 fL (7.4-10.4); Monocytes # 0.6 10^3/uL (0.2-0.9); Neutrophils # 1.73 10^3/uL (1.8-7.7); Neutrophils % 39.8 %; Nucleated Red Blood Cells % 0 %; Platelet Count 178 10^3/cmm (157-399); Red Blood Count 4.24 10^6/uL (3.85-5.65); Red Cell Distribution Width 12.2 % (12.1-15.1); White Blood Count 4.35 10^3/uL (3.29-11.43)
[2023-11-05 03:51] LABS: Alanine Aminotransferase 40 U/L (0-41); Alkaline Phosphatase 64 U/L (40-130); Chloride 105 mmol/L (98-107); Potassium 4.1 mmol/L (3.5-5.1); Sodium 138 mmol/L (136-145)
[2023-11-05 03:52] LABS: Creatine Phosphokinase 264 U/L (39-308)
[2023-11-05 04:27] LABS: Anion Gap 12.9 (5-19); Aspartate Amino Transferase 49 U/L (0-40); Blood Urea Nitrogen 12 mg/dL (8-23); Calcium 8.5 mg/dL (8.5-10.5); Carbon Dioxide 27 mmol/L (22-29); Globulin 2.7 g/dL (1.3-4.6); Glucose 113 mg/dL (65-115); Osmolality Calculated 291 mOsm/kg (285-295); Total Bilirubin 0.5 mg/dL (0.15-1.2); Total Protein 5.6 g/dL (6.6-8.7)
[2023-11-05] MEDS: cyclobenzaprine 10 mg Tablet 5 MG PO ×2 (06:53→19:52)
[2023-11-05] MEDS: famotidine 20 mg Tablet PO ×2 (08:14→17:55)
[2023-11-05] MEDS: tamsulosin 0.4 mg Capsule 0.400000000000000022 MG PO (08:14)
[2023-11-05] MEDS: heparin 5,000 unit/mL INJ 1 mL 5000 UNIT SUBCUT ×2 (08:14→19:52)
[2023-11-05] MEDS: calcium carb-vit d 500mg-200unit 1 Tablet 1 EACH PO ×2 (08:14→17:55)
[2023-11-05] MEDS: gabapentin 100 mg Capsule 200 MG PO ×2 (08:14→17:55)
[2023-11-05] MEDS: metoprolol succinate ER (24 HR) 25 mg Tablet PO ×2 (08:14→17:55)
[2023-11-05] MEDS: fentaNYL 25 mcg Patch 1 PATCH TRANSDERMA (11:01)
[2023-11-05 13:41] LABS: Glucose Point of Care 143 mg/dL (70-110)
--- NOTE | 2023-11-05 13:52 | P.PN_ITS ---
Subjective 2 Subjective: No new complaints. Sitting comfortably in chair. Working with physical therapy. Hemodynamically stable, afebrile. Vitals/I&O/Wt Last Vital Signs Temp 98.0 F 11/05/23 12:00 Pulse 59 L 11/05/23 12:00 Resp 16 11/05/23 12:00 BP 138/86 11/05/23 12:00 Pulse Ox 95 11/05/23 12:00 O2 Del Method Room Air 11/05/23 12:00 11/04/23 11/05/23 11/05/23 22:59 06:59 14:59 Intake Total 240 / 480 240 / 240 Output Total 500 / 500 300 / 800 Balance -260 / -20 -300 / -320 240 / 240 Weight last 48 hrs Weight 85.417 kg Weight 83.143 kg Weight 83.143 kg Physical Exam 2 Narrative: General: No acute distress, AO x3 HEENT: PERRLA, pupils bilaterally equal and reactive, pallors not present Chest: Normal vesicular breath sounds, no added sounds, equal good air entry bilaterally CVS: S1-S2 regular, no murmurs, no tachycardia, no gallops, no rubs Abdomen: Soft, nontender, no organomegaly, bowel sounds present Neuro: No focal deficits, no facial deformity, AO x3, power 5/5 in all limbs Data 11/05/23 03:04 11/05/23 03:04 A&P Assessment and plan (1) Frequent falls: 73-year-old male with history of recurrent mechanical falls. No obvious cause has been attributed over the years. He is currently in physical therapy as an outpatient to help improve his gait and endurance. Patient has a history of prostate carcinoma for which she is currently undergoing radiation therapy, however episodes of falls predate his diagnosis. 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 Patient denies any current dizziness tinnitus Orthostatic negative. CT head done yesterday shows chronic right sided frontal lobe stroke with ex vacuo dilatation of right frontal horn. Vitamin B12 levels normal. TSH normal. (2) Rhabdomyolysis: Resolving. Down to 1300. Patient's oral intake is good. Will stop IV fluids. Hold triamterene HCTZ for now to minimize risk for renal injury. Qualifiers: Encounter type: initial encounter Rhabdomyolysis type: traumatic Qualified Code(s): T79.6XXA - Traumatic ischemia of muscle, initial encounter (3) Compression fracture: Appreciate neurosurgeon recommendations. MRI thoracic and lumbar spine consistent with chronic fractures. MRI cervical spine as per neurosurgical team. Plan for conservative treatment with physical therapy and pain control for now. Back brace. Continue with PT and OT. Continue with pain management morphine 2 mg every 4 hours as needed, oxycodone 5 mg every 6 hours as needed, fentanyl patch 25 mcg, Flexeril 5 mg 3 times daily as needed. (4) Blood transfusion declined because patient is Protestant: (5) Bradycardia: (6) Hx of prostatic malignancy: Plan DVT ppx: Heparin 5000 q12h Full code. States his friend Omid will be the DPOA. Also states he is Protestant so he does not accept blood products Discharge plan: Discussed further discharge planning with patient and daughter at bedside. Options discussed were home with home health at daughter's house versus SNF versus acute rehab. We discussed that given his chronic fractures, pain patient would benefit from rehab either acute or at SNF. Patient verbalized understanding and is agreeable. Case management on board. Plan for the day: Appreciate labs today. CPK has normalized. No LISA. Continue to hold off on IV fluids as patient's oral intake as well. Labs holiday again tomorrow. Continue with current pain medications including fentanyl patch. Awaiting placement. Patient awaiting acceptance to SNF versus acute rehab further rehabitation. Attestations 2 Medical Necessity Statement*: Requires further hospitalization for management of acute lumbar fracture leading to recurrent falls, rhabdomyolysis while safe discharge planning for extensive rehabilitation is sought Diagnoses Frequent falls R29.6 Traumatic rhabdomyolysis, initial encounter T79.6XXA Encounter type: initial encounter Rhabdomyolysis type: traumatic Compression fracture Blood transfusion declined because patient is Protestant Z53.1 Bradycardia R00.1 Hx of prostatic malignancy Z85.46
--- NOTE | 2023-11-05 14:19 | PC.NURSE ---
At approximately 1325 pt came up to the [facility] nurses station and confused about where he was. Pt also had a visitor that had come to see him and pt and pt did not recognize his visitor that is in his roman catholic. Forklift Driver was able to help pt back to his room and orientate him to his surroundings. Pt stated to this nurse that he did not sleep well last night. Dr. Kunz made aware. Pt currently sitting up in chair with chair alarm in place for safety. Will continue to monitor.
[2023-11-05] MEDS: amlodipine 5 mg Tablet PO (19:52)
[2023-11-06] VITALS (10 sets, daily range): BP systolic 114–190; BP diastolic 67–75; PULSE 56–76; RESP 16–19; TEMP 36.3–37.1; O2SAT 94–97
[2023-11-06 06:28] LABS: Alanine Aminotransferase 48 U/L (0-41); Albumin Level 3.2 g/dL (3.5-5.2); Alkaline Phosphatase 76 U/L (40-130); Anion Gap 11.9 (5-19); Aspartate Amino Transferase 52 U/L (0-40); Blood Urea Nitrogen 11 mg/dL (8-23); Calcium 9.3 mg/dL (8.5-10.5); Carbon Dioxide 27 mmol/L (22-29); Chloride 104 mmol/L (98-107); Glucose 106 mg/dL (65-115); Osmolality Calculated 288 mOsm/kg (285-295); Potassium 3.9 mmol/L (3.5-5.1); Sodium 139 mmol/L (136-145); Total Bilirubin 0.9 mg/dL (0.15-1.2); Total Protein 6.2 g/dL (6.6-8.7)
[2023-11-06] MEDS: calcium carb-vit d 500mg-200unit 1 Tablet 1 EACH PO ×2 (08:38→17:23)
[2023-11-06] MEDS: metoprolol succinate ER (24 HR) 25 mg Tablet PO ×2 (08:38→17:23)
[2023-11-06] MEDS: gabapentin 100 mg Capsule 200 MG PO ×3 (08:38→20:28)
[2023-11-06] MEDS: tamsulosin 0.4 mg Capsule 0.400000000000000022 MG PO (08:38)
[2023-11-06] MEDS: famotidine 20 mg Tablet PO ×2 (08:39→17:23)
[2023-11-06] MEDS: heparin 5,000 unit/mL INJ 1 mL 5000 UNIT SUBCUT ×2 (08:39→20:30)
[2023-11-06] MEDS: losartan 50 mg Tablet PO (12:04)
[2023-11-06] MEDS: amlodipine 10 mg Tablet PO (12:05)
--- NOTE | 2023-11-06 13:42 | PM.PN ---
Subjective Subjective: No acute events overnight. Patient has remained hemodynamically stable and afebrile. Today morning seen again sitting up in chair. Not confused anymore. He did state that he knows he was confused yesterday and is able to remember all the events which that happened yesterday in his conversation with his friend who was at bedside while he was confused. Today he is complaining of pain in his left groin going down to his feet which he thinks is because of sciatica. Otherwise has remained afebrile. Blood pressure is elevated today. Vitals/I&O/Wt Last Vital Signs Temp 97.7 F 11/06/23 12:28 Pulse 69 11/06/23 12:28 Resp 19 H 11/06/23 12:28 BP 134/73 11/06/23 12:28 Pulse Ox 97 11/06/23 12:28 O2 Del Method Room Air 11/06/23 12:28 11/05/23 11/06/23 11/06/23 21:59 06:59 14:59 Intake Total 480 / 480 Output Total Balance 480 / 480 Weight last 48 hrs Weight 81.42 kg Weight 85.077 kg Weight 85.417 kg Physical Exam Narrative: General: No acute distress, AO x3 HEENT: PERRLA, pupils bilaterally equal and reactive, pallors not present Chest: Normal vesicular breath sounds, no added sounds, equal good air entry bilaterally CVS: S1-S2 regular, no murmurs, no tachycardia, no gallops, no rubs Abdomen: Soft, nontender, no organomegaly, bowel sounds present Neuro: No focal deficits, no facial deformity, AO x3, power 5/5 in all limbs Data 11/05/23 03:04 11/06/23 05:56 A&P Assessment and plan (1) Frequent falls: 73-year-old male with history of recurrent mechanical falls. No obvious cause has been attributed over the years. He is currently in physical therapy as an outpatient to help improve his gait and endurance. Patient has a history of prostate carcinoma for which she is currently undergoing radiation therapy, however episodes of falls predate his diagnosis. 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 Patient denies any current dizziness tinnitus Orthostatic negative. CT head done yesterday shows chronic right sided frontal lobe stroke with ex vacuo dilatation of right frontal horn. Vitamin B12 levels normal. TSH normal. (2) Rhabdomyolysis: Resolving. Down to 1300. Patient's oral intake is good. Will stop IV fluids. Hold triamterene HCTZ for now to minimize risk for renal injury. Qualifiers: Encounter type: initial encounter Rhabdomyolysis type: traumatic Qualified Code(s): T79.6XXA - Traumatic ischemia of muscle, initial encounter (3) Compression fracture: Appreciate neurosurgeon recommendations. MRI thoracic and lumbar spine consistent with chronic fractures. MRI cervical spine as per neurosurgical team. Plan for conservative treatment with physical therapy and pain control for now. Back brace. Continue with PT and OT. Continue with pain management morphine 2 mg every 4 hours as needed, oxycodone 5 mg every 6 hours as needed, fentanyl patch 25 mcg, Flexeril 5 mg 3 times daily as needed. (4) Blood transfusion declined because patient is Restorationist: (5) Bradycardia: (6) Hx of prostatic malignancy: (7) Confusion: Resolved now. Most likely in setting of fentanyl patch. Plan DVT ppx: Heparin 5000 q12h Full code. States his friend Omid will be the DPOA. Also states he is Restorationist so he does not accept blood products Discharge plan: Discussed further discharge planning with patient and daughter at bedside. Options discussed were home with home health at daughter's house versus SNF versus acute rehab. We discussed that given his chronic fractures, pain patient would benefit from rehab either acute or at SNF. Patient verbalized understanding and is agreeable. Case management on board. Plan for the day: Patient did develop confusion yesterday which was resolved after discontinuing fentanyl patch. Will hold off on any further fentanyl patch. Complaining of sciatica pain. Continue with physical therapy with T SLO brace. Increase home dose of gabapentin to 200 mg 3 times a day from 200 mg 2 times a day. Add trazodone 50 mg nightly as needed for insomnia. Goal blood pressure less than 140/90 mmHg. Increase home dose of amlodipine to 10 mg daily and add losartan 50 mg oral daily. Lab holiday tomorrow. Patient awaiting acceptance to SNF versus acute rehab further rehabitation. Attestations Medical Necessity Statement*: Requires further hospitalization for management of lumbar fracture requiring extensive physical therapy, high blood pressure, pain control while safe discharge planning is sought Diagnoses Frequent falls R29.6 Traumatic rhabdomyolysis, initial encounter T79.6XXA Encounter type: initial encounter Rhabdomyolysis type: traumatic Compression fracture Blood transfusion declined because patient is Restorationist Z53.1 Bradycardia R00.1 Hx of prostatic malignancy Z85.46 Confusion R41.0
[2023-11-06] MEDS: oxyCODONE-APAP 5-325 mg Tablet 1 TAB PO (17:23)
[2023-11-07 04:30] VITALS: BP 143/75; PULSE 61; RESP 18; TEMP 36.4; O2SAT 95
[2023-11-07 08:00] VITALS: BP 166/67; PULSE 61; RESP 18; TEMP 36.3; O2SAT 96
[2023-11-07 08:37] VITALS: BP 166/67
[2023-11-07] MEDS: gabapentin 100 mg Capsule 200 MG PO (08:37)
[2023-11-07] MEDS: calcium carb-vit d 500mg-200unit 1 Tablet 1 EACH PO (08:37)
[2023-11-07] MEDS: metoprolol succinate ER (24 HR) 25 mg Tablet PO (08:37)
[2023-11-07] MEDS: losartan 50 mg Tablet PO (08:37)
[2023-11-07] MEDS: amlodipine 10 mg Tablet PO (08:37)
[2023-11-07] MEDS: famotidine 20 mg Tablet PO (08:37)
[2023-11-07] MEDS: tamsulosin 0.4 mg Capsule 0.400000000000000022 MG PO (08:38)
[2023-11-07] MEDS: cyclobenzaprine 10 mg Tablet 5 MG PO (08:39)
[2023-11-07] MEDS: heparin 5,000 unit/mL INJ 1 mL 5000 UNIT SUBCUT (08:40)
[2023-11-07 09:54] LABS: SARS Covid-2 Antigen negative (Negative)
--- NOTE | 2023-11-07 10:06 | PM.DCS ---
Discharge Providers Date of Admission: 11/01/23 18:12 Date of Discharge: November 07, 2023 Attending Provider at Admission: Deandre Kunz MD Attending Provider at Discharge: Mayito Aguiar Primary Care Provider: Davin Collier DO Diagnoses at Discharge Discharge Diagnosis (1) Frequent falls: Status: Acute (2) Rhabdomyolysis: Status: Acute Qualifiers: Encounter type: initial encounter Rhabdomyolysis type: traumatic Qualified Code(s): T79.6XXA - Traumatic ischemia of muscle, initial encounter (3) Compression fracture: Status: Acute (4) Blood transfusion declined because patient is Rastafari: Status: Acute (5) Bradycardia: Status: Acute (6) Hx of prostatic malignancy: Status: Acute (7) Confusion: Status: Acute Reason for Visit Reason for Visit: Back pain post fall Hospital Course Hospital Course Pleasant 73-year-old woman with history of prostate cancer, status post chemoradiation, Rastafari not excepting blood transfusion, chronic back pain, was admitted after back pain after a mechanical fall. Was assessed by CT on presentation including head, C-spine, thoracolumbar, pelvis, was found to have L1 compression fracture for which she was assessed by orthopedic surgery. MRI was obtained confirming fracture as well as multilevel mild-moderate lumbar disc and facet degeneration producing mild spinal stenosis L1-2, L3-4, L4-5, moderate left neuroforaminal stenosis L4-5, mild neuroforaminal stenosis at L3-4 bilaterally. 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 CT of the head additionally with finding of old/chronic right frontal lobe stroke with encephalomalacia. Severe compression in the cervical region as well as old stroke is felt to be likely contributing to his balance issues. Orthopedic surgery discussed with family consideration of further options and plans are to follow-up on outpatient side to further discuss whether any surgical intervention would be desired and/or an option. He would further benefit from rehabilitation and he is excepted at SNF today. Please maintain fall precautions. Continue physical therapy. On presentation also with mild rhabdomyolysis which had resolved. During hospitalization all additionally mild confusion related to fentanyl patch which resolved with removal. Gabapentin dose was increased to 200 mg 3 times daily. During hospitalization hypertension medications were adjusted to optimize blood pressure control as well, amlodipine dose was increased to 10 mg, losartan 50 mg was added. Maxzide is stopped for now. Physical Exam Narrative: Sitting up in the chair. Const: COMMON NORMALS: patient oriented x3 and alert GENERAL APPEARANCE: cooperative and frail appearing ORIENTATION/CONSCIOUSNESS: Yes awake HENMT: COMMON NORMALS: oropharynx normal Neck/C-Spine: COMMON NORMALS: no JVD Resp: COMMON NORMALS: normal respiratory effort and clear to auscultation bilaterally AUSCULTATION: clear to auscultation bilaterally Cardio: COMMON NORMALS: no JVD, regular rhythm, S1 normal heart sound present, S2 normal heart sound present and No murmurs present (Cardio) RHYTHM: regular rhythm HEART SOUNDS: S1 normal heart sound present and S2 normal heart sound present GI: COMMON NORMALS: Normal to inspection, nondistended, normoactive bowel sounds present, Soft to palpation and non-tender PALPATION: Yes Soft to palpation Extremity: COMMON NORMALS: no joint enlargement and no pedal edema Neuro: COMMON NORMALS: patient oriented x3 and moves all extremities SENSORIUM/ORIENTATION: Yes alert Skin: COMMON NORMALS: no rashes or lesions noted GENERAL SKIN EXAM: no rashes or lesions noted Discharge Data Studies Completed and Pending Completed Studies During Hospitalization Category Date Time Status CT cervical spin wo con* [id number] Stat Cat Scan 11/01/23 16:[address] head wo/w con [id number] Routine Cat Scan 11/02/23 10:[address] lumbar spine wo con* [id number] Stat Cat Scan 11/01/23 16:[address] pelvis wo con [id number] Stat Cat Scan 11/01/23 16:[address] thoracic spin wo con* [id number] Stat Cat Scan 11/01/23 16:01 Completed XR hip BI 3-4V wo/w pel [id number] Stat Exams 11/01/23 16:01 Completed XR knee LT 1-2V [id number] Routine Exams 11/03/23 08:34 Completed MR cervical spin wo con* [id number] Routine MRI 11/03/23 08:33 Completed MR lumbar spine wo con* [id number] Routine MRI 11/02/23 13:59 Completed MR thoracic spine wo [MR thoracic spin wo con* [id number]] MRI 11/02/23 13:59 Completed Routine Pending at discharge Category Date Time Status Vitamin D 1,25 Dihydroxy Routine Lab 11/01/23 17:16 Received Radiology Impressions Cervical Spine CT 11/01/23 16:01 IMPRESSION: 1. No evidence of acute traumatic pathology. 2. Degenerative changes detailed above. Hip/Pelvis X-Ray 11/01/23 16:01 IMPRESSION: No acute bony pathology. Lumbar Spine CT 11/01/23 16:01 IMPRESSION: Moderate compression fracture of the L1 vertebral body without evidence of retropulsed fragment. No other acute traumatic pathology. Other findings including degenerative changes as detailed above. Thoracic Spine CT 11/01/23 16:01 IMPRESSION: 1. No acute traumatic pathology of the thoracic spine. T12 compression fracture again noted; see lumbar spine CT report for description. 2. Minor findings as above. Pelvis CT 11/01/23 16:28 IMPRESSION: 1. No evidence of acute traumatic pathology. 2. Minor findings noted above including colonic diverticulosis and prostatomegaly. ADDENDUM: 11/01/23 1703 6 mm fat attenuation structure contiguous with the dome of the bladder on series 5, image 124, series 7, image 48 possibly representing a small atypical mural lipoma but felt not to be related to acute traumatic pathology. Lumbar Spine MRI 11/02/23 13:59 IMPRESSION: 1. Moderate superior endplate compression fracture at L1 without bone marrow edema consistent with chronic fracture. The finding is new since 06/02/2022. 2. Multilevel mild to moderate lumbar disc and facet degeneration producing mild spinal stenosis at L1-L2, L3-L4 and L4-L5, and moderate left neural foraminal stenosis at L4-L5. Mild neural foraminal stenosis at L3-L4 bilaterally. Thoracic Spine MRI 11/02/23 13:59 IMPRESSION: 1. Intact thoracic spine. 2. Moderate L1 superior endplate compression fracture without bone marrow edema consistent with a chronic fracture. The finding is new since 06/02/2022.. Laboratory Results WBC 4.35 10^3/uL (3.29-11.43) 11/05/23 03:04 RBC 4.24 10^6/uL (3.85-5.65) 11/05/23 03:04 Hgb 12.80 g/dL (11.27-16.99) 11/05/23 03:04 Hct 38.3 % (37-53) 11/05/23 03:04 MCV 90.3 fl (82-101) 11/05/23 03:04 MCH 30.2 pg (27-33) 11/05/23 03:04 MCHC 33.4 g/dL (30-55) 11/05/23 03:04 RDW 12.2 % (12.1-15.1) 11/05/23 03:04 Plt Count 178 10^3/cmm (157-399) 11/05/23 03:04 MPV 9.9 fL (7.4-10.4) 11/05/23 03:04 Neut % (Auto) 39.8 % 11/05/23 03:04 Lymph % (Auto) 32.9 % 11/05/23 03:04 [place] % (Auto) 14.0 % 11/05/23 03:04 Eos % (Auto) 12.0 % 11/05/23 03:04 Baso % (Auto) 1.1 % 11/05/23 03:04 Neut # (Auto) 1.73 10^3/uL (1.8-7.7) L 11/05/23 03:04 Lymph # (Auto) 1.4 10^3/uL (0.8-4.8) 11/05/23 03:04 [place] # (Auto) 0.6 10^3/uL (0.2-0.9) 11/05/23 03:04 Eos # (Auto) 0.5 10^3/uL (0.0-0.8) 11/05/23 03:04 Baso # (Auto) 0.1 10^3/uL (0.0-0.1) 11/05/23 03:04 Nucleated RBC % (auto) 0 % 11/05/23 03:04 Nucleated RBCs # 0.0 /100WBC 11/05/23 03:04 PT 13.50 SECONDS (12.1-14.9) 11/01/23 17:16 INR 1.00 (0.8-1.2) 11/01/23 17:16 Sodium 139 mmol/L (136-145) 11/06/23 05:56 Potassium 3.9 mmol/L (3.5-5.1) 11/06/23 05:56 Chloride 104 mmol/L (98-107) 11/06/23 05:56 Carbon Dioxide 27 mmol/L (22-29) 11/06/23 05:56 Anion Gap 11.9 (5-19) 11/06/23 05:56 BUN 11 mg/dL (8-23) 11/06/23 05:56 Creatinine 1.0 mg/dL (0.7-1.2) 11/06/23 05:56 GFR Calculation Not Reportable 11/06/23 05:56 Glucose 106 mg/dL (65-115) 11/06/23 05:56 POC Glucose 143 mg/dL (70-110) H 11/05/23 13:35 Estimat Average Glucose 114 11/02/23 05:41 Hemoglobin A1c 5.6 % (4.0-6.0) 11/02/23 05:41 Calculated Osmolality 288 mOsm/kg (285-295) 11/06/23 05:56 Calcium 9.3 mg/dL (8.5-10.5) 11/06/23 05:56 Phosphorus 2.8 mg/dL (2.5-4.5) 11/02/23 05:41 Magnesium 1.9 mg/dL (1.7-2.3) 11/02/23 05:41 Iron 35 ug/dL (59-158) L 11/01/23 17:16 TIBC 241 mcg/dl 11/01/23 17:16 % Saturation 14.5 % (20-50) L 11/01/23 17:16 Unsat Iron Binding 206 ug/dL (112-347) 11/01/23 17:16 Total Bilirubin 0.9 mg/dL (0.15-1.2) 11/06/23 05:56 AST 52 U/L (0-40) H 11/06/23 05:56 ALT 48 U/L (0-41) H 11/06/23 05:56 Alkaline Phosphatase 76 U/L (40-130) 11/06/23 05:56 Creatine Kinase 264 U/L (39-308) 11/05/23 03:04 Total Protein 6.2 g/dL (6.6-8.7) L 11/06/23 05:56 Albumin 3.2 g/dL (3.5-5.2) L 11/06/23 05:56 Globulin 3.0 g/dL (1.3-4.6) 11/06/23 05:56 Vitamin B12 253 pg/mL (232-1245) 11/01/23 17:16 Folate 8.0 ng/mL (4.5-32.2) 11/02/23 05:41 TSH 0.95 uIU/mL (0.27-4.20) 11/01/23 17:16 Urine Color Yellow (Yellow) 11/01/23 23:35 Urine Appearance Clear (CLEAR) 11/01/23 23:35 Urine pH 5 (5-7) 11/01/23 23:35 Ur Specific [place] 1.025 (1.005-1.030) 11/01/23 23:35 Urine Protein Neg (Negative) 11/01/23 23:35 Urine Glucose (UA) Norm (Normal) 11/01/23 23:35 Urine Ketones 1+ (Negative) H 11/01/23 23:35 Urine Blood 2+ (Negative) H 11/01/23 23:35 Urine Nitrate Negative (Negative) 11/01/23 23:35 Urine Bilirubin Neg (Negative) 11/01/23 23:35 Urine Urobilinogen Neg mg/dL (Negative) 11/01/23 23:35 Ur Leukocyte Esterase Negative (Negative) 11/01/23 23:35 Urine RBC 0-4 /hpf (0-2) H 11/01/23 23:35 Urine WBC None /hpf (0-5) 11/01/23 23:35 Ur Squamous Epith Cells None /hpf (0-5) 11/01/23 23:35 Amorphous Sediment Not Reportable 11/01/23 23:35 Urine Bacteria Trace /hpf (NONE) 11/01/23 23:35 Urine Mucus 2+ /hpf 11/01/23 23:35 SARS-CoV-2 Ag (Rapid) negative (Negative) 11/07/23 08:50 Vitals Last Vital Signs Temp 97.3 F L 11/07/23 08:00 Pulse 61 11/07/23 08:00 Resp 18 11/07/23 08:00 BP 166/67 11/07/23 08:37 Pulse Ox 96 11/07/23 08:00 O2 Del Method Room Air 11/07/23 08:00 Discharge Plan Discharge Patient Disposition: Xfer SNF Condition: Stable Prescriptions: New losartan 50 mg Tablet 50 mg PO DAILY Qty: 90 0RF amlodipine 10 mg Tablet 10 mg PO DAILY Qty: 90 0RF Continued simvastatin 20 mg tablet 20 mg PO DAILY Qty: 30 11RF metoprolol succinate 25 mg tablet extended release 24 hr 25 mg PO BID Qty: 180 3RF calcium carbonate-vitamin D3 [Oyster Shell Calcium-Vit D3] 500 mg-10 mcg (400 unit) tablet 1 tab PO BID Qty: 60 3RF tamsulosin [Flomax] 0.4 mg capsule 0.4 mg PO DAILY MDD 0.4 Qty: 30 11RF Vitamin D3 10 mcg PO DAILY furosemide 40 mg tablet See Rx Instructions .ROUTE .COMPLEX PRN (Reason: Edema) Qty: 30 0RF Dose Instruction: TAKE ONE TABLET BY MOUTH ONCE DAILY Rx Instructions: TAKE ONE TABLET BY MOUTH ONCE DAILY Changed gabapentin 100 mg capsule 200 mg PO TID Qty: 30 0RF Discontinued amlodipine 5 mg tablet See Rx Instructions .ROUTE .COMPLEX Qty: 90 0RF Dose Instruction: TAKE ONE TABLET BY MOUTH ONCE DAILY Rx Instructions: TAKE ONE TABLET BY MOUTH ONCE DAILY triamterene-hydrochlorothiazid [Maxzide-25mg] 37.5-25 mg tablet 1 tab PO DAILY Rx Instructions: TAKE ONE TABLET BY MOUTH ONCE DAILY Discharge Orders: Discharge Order (Routine); Ordered 11/07/23 Ordered By: Mayito Aguiar Other Ambulatory Orders: DME: Walker (Order) Location: None Selected Ordered By: Deandre uKnz Referrals: [facility] [Outside] Manjinder Sanchez DO [Physician] - 11/10/23 3:15 pm (Soonest available ) Davin Collier DO [Primary Care Provider] - 4-7 days Discharge Activity: Limit activity as instructed and As per PT/OT instructions Patient Instructions: Fall Prevention (GEN), Opioid Safety Activity Restrictions/Additional Instructions: Follow-up orthospine clinic after discharge. Continue rehabilitation with physical therapy. Maintain fall precautions. Caution with pain control to avoid altered mental status. Follow-up with your primary doctor regarding old right frontal lobe stroke. Once risk of fall decreases consider starting aspirin for secondary prophylaxis. Continue to optimize blood pressure control, other risk factors. Discharge Attestations Time Spent in Discharge Care*: greater than 30 min Quality Metrics Clinical Quality Measures [ No reported AMI, CVA or VTE this stay] Coding Level of Care Code 04670 Total time (in minutes) for Discharge: 40 Diagnoses Frequent falls R29.6 Traumatic rhabdomyolysis, initial encounter T79.6XXA Encounter type: initial encounter Rhabdomyolysis type: traumatic Compression fracture Blood transfusion declined because patient is Rastafari Z53.1 Bradycardia R00.1 Hx of prostatic malignancy Z85.46 Confusion R41.0
--- NOTE | 2023-11-07 11:08 | PC.SOCIAL ---
IMM Updated Updated pt on IMM. No questions voiced. Provided pt a copy. Initialed, dated, & timed copy in chart.
[2023-11-07 11:31] VITALS: BP 96/59; PULSE 66; RESP 18; TEMP 36.3; O2SAT 97
--- NOTE | 2023-11-07 11:50 | PC.NURSE ---
Report called to Leticia at [facility]. pt will be transported via [facility] facility Transportation.
[2023-11-07 12:21] VITALS: BP 96/59; PULSE 66; RESP 18; TEMP 36.3; O2SAT 97
[2023-11-08 13:15] LABS: Vit D 1,25 (Oh)2, Total 27 pg/mL (18-72); Vit D2 1,25 (Oh)2 <8 pg/mL; Vit D3 1,25 (Oh)2 27 pg/mL
== END 2023-11-07 12:23 | disposition skilled nursing facility (03) | DRG 552 ==
LOC: ER 18:16 → MEDSURG 20:11
PROVIDERS: Student in an Organized Health Care Education/Training Program; Admitting Provider Student in an Organized Health Care Education/Training Program; Emergency Provider Emergency Medicine; PCP Family Medicine; Visit Provider Internal Medicine
DX: S32.019A Unspecified fracture of first lumbar vertebra, initial encounter for closed fracture (principal); S22.089A Unspecified fracture of T11-T12 vertebra, initial encounter for closed fracture; M47.12 Other spondylosis with myelopathy, cervical region; T84.84XA Pain due to internal orthopedic prosthetic devices, implants and grafts, initial encounter; G95.89 Other specified diseases of spinal cord; W19.XXXA Unspecified fall, initial encounter; M48.02 Spinal stenosis, cervical region; I10 Essential (primary) hypertension; E78.5 Hyperlipidemia, unspecified; T79.6XXA Traumatic ischemia of muscle, initial encounter; M62.838 Other muscle spasm; R00.1 Bradycardia, unspecified; M48.062 Spinal stenosis, lumbar region with neurogenic claudication; Y79.8 Miscellaneous orthopedic devices associated with adverse incidents, not elsewhere classified; R41.0 Disorientation, unspecified; G89.29 Other chronic pain; Z11.52 Encounter for screening for COVID-19; Z91.81 History of falling; Z85.46 Personal history of malignant neoplasm of prostate; Z92.3 Personal history of irradiation; Z87.891 Personal history of nicotine dependence; Z86.73 Personal history of transient ischemic attack (TIA), and cerebral infarction without residual deficits; Z92.21 Personal history of antineoplastic chemotherapy
CPT/HCPCS: 36415; 36416; 70470; 72125; 72128; 72131; 72141; 72146; 72148; 72192; 73522; 73560; 80053; 81001; 82550; 82607; 82652; 82746; 82962; 83036; 83540; 83550; 83735; 84100; 84443; 85025; 85610; 87426; 94664; 96361; 96372; 96374; 96375; 97116; 97162; 97165; 97530; 97535; 97760; 99285; J1644; J2270; J2405; J7030; L0637; Q9967

== ENCOUNTER → 2023-11-15 09:07 | Outpatient (BNVA) | payer OTHER, SELFPAY | PROVIDERS: PCP Family Medicine; Visit Provider Orthopaedic Surgery | DX: T14.8XXA Other injury of unspecified body region, initial encounter (principal); X58.XXXA Exposure to other specified factors, initial encounter | CPT/HCPCS: 72100; 99214 ==

== ENCOUNTER 2023-12-16 09:00 | Oncology outpatient (recurring) (ONCR) | payer MEDICARE, SELFPAY ==
[2023-12-16 09:50] LABS: Basophils % 0.8 %; Eosinophils # 0.3 10^3/uL (0.0-0.8); Eosinophils % 5.3 %; Hematocrit 39.7 % (37-53); Lymphocytes # 1.6 10^3/uL (0.8-4.8); Lymphocytes % 32.8 %; Mean Corpuscular HGB Conc 34.3 g/dL (30-55); Mean Corpuscular Hemoglobin 29.7 pg (27-33); Mean Corpuscular Volume 86.7 fl (82-101); Mean Platelet Volume 9.5 fL (7.4-10.4); Monocytes # 0.4 10^3/uL (0.2-0.9); Monocytes % 9.3 %; Neutrophils # 2.43 10^3/uL (1.8-7.7); Neutrophils % 51.6 %; Nucleated Red Blood Cells % 0 %; Platelet Count 230 10^3/cmm (157-399); Red Blood Count 4.58 10^6/uL (3.85-5.65); Red Cell Distribution Width 12.3 % (12.1-15.1); White Blood Count 4.72 10^3/uL (3.29-11.43)
[2023-12-16 10:24] LABS: Alanine Aminotransferase 19 U/L (0-41); Albumin Level 3.7 g/dL (3.5-5.2); Alkaline Phosphatase 60 U/L (40-130); Anion Gap 12.4 (5-19); Aspartate Amino Transferase 20 U/L (0-40); Blood Urea Nitrogen 17 mg/dL (8-23); Calcium 9.3 mg/dL (8.5-10.5); Carbon Dioxide 24 mmol/L (22-29); Chloride 108 mmol/L (98-107); Creatinine Clr Calc Pharmacy 69.5195; Globulin 2.8 g/dL (1.3-4.6); Glucose 94 mg/dL (65-115); Osmolality Calculated 291 mOsm/kg (285-295); Potassium 4.4 mmol/L (3.5-5.1); Prostate Specific Antigen 0.026 ng/mL (0-4); Sodium 140 mmol/L (136-145); Testosterone Total 2.5 ng/dL (193-740); Total Bilirubin 0.5 mg/dL (0.15-1.2); Total Protein 6.5 g/dL (6.6-8.7)
[2023-12-16] MEDS: leuprolide 22.5 mg Kit IM (10:50)
== END 2023-12-27 23:59 | disposition home or self-care (01) ==
PROVIDERS: Nurse Practitioner Family; PCP Family Medicine; Visit Provider Radiology Radiation Oncology
DX: Z51.0 Encounter for antineoplastic radiation therapy (principal); C61 Malignant neoplasm of prostate; R00.1 Bradycardia, unspecified; Z79.899 Other long term (current) drug therapy; R35.1 Nocturia; R39.198 Other difficulties with micturition; Z79.818 Long term (current) use of other agents affecting estrogen receptors and estrogen levels
CPT/HCPCS: 36415; 80053; 84153; 84403; 85025; 96402; 99214; J9217

== ENCOUNTER → 2023-12-27 12:42 | Outpatient (BNVA) | payer MEDICARE, SELFPAY | PROVIDERS: PCP Family Medicine; Visit Provider Orthopaedic Surgery | DX: S32.000A Wedge compression fracture of unspecified lumbar vertebra, initial encounter for closed fracture (principal); W19.XXXA Unspecified fall, initial encounter | CPT/HCPCS: 99213 ==

== ENCOUNTER 2024-03-12 13:32 | Oncology outpatient (recurring) (ONCR) | payer MEDICARE, SELFPAY ==
[2024-03-12 14:29] LABS: Basophils # 0.1 10^3/uL (0.0-0.1); Basophils % 0.9 %; Eosinophils # 0.2 10^3/uL (0.0-0.8); Eosinophils % 3.6 %; Hematocrit 39.9 % (37-53); Lymphocytes # 1.9 10^3/uL (0.8-4.8); Lymphocytes % 32.2 %; Mean Corpuscular HGB Conc 34.1 g/dL (30-55); Mean Corpuscular Hemoglobin 29.5 pg (27-33); Mean Corpuscular Volume 86.6 fl (82-101); Mean Platelet Volume 8.9 fL (7.4-10.4); Monocytes # 0.6 10^3/uL (0.2-0.9); Neutrophils # 3.03 10^3/uL (1.8-7.7); Nucleated Red Blood Cells % 0 %; Platelet Count 255 10^3/cmm (157-399); Red Blood Count 4.61 10^6/uL (3.85-5.65); Red Cell Distribution Width 12.5 % (12.1-15.1); White Blood Count 5.83 10^3/uL (3.29-11.43)
[2024-03-12 14:55] LABS: Alanine Aminotransferase 17 U/L (0-41); Albumin Level 3.9 g/dL (3.5-5.2); Alkaline Phosphatase 77 U/L (40-130); Anion Gap 17.7 (5-19); Aspartate Amino Transferase 20 U/L (0-40); Blood Urea Nitrogen 17 mg/dL (8-23); Calcium 9.3 mg/dL (8.5-10.5); Carbon Dioxide 24 mmol/L (22-29); Chloride 100 mmol/L (98-107); Glucose 100 mg/dL (65-115); Osmolality Calculated 288 mOsm/kg (285-295); Potassium 3.7 mmol/L (3.5-5.1); Sodium 138 mmol/L (136-145); Testosterone Total 2.5 ng/dL (193-740); Total Bilirubin 0.7 mg/dL (0.15-1.2); Total Protein 6.9 g/dL (6.6-8.7)
[2024-03-12 14:57] LABS: Prostate Specific Antigen < 0.014 ng/mL (0-4)
[2024-03-12] MEDS: leuprolide 22.5 mg Kit IM (15:23)
== END 2024-03-28 23:59 | disposition home or self-care (01) ==
PROVIDERS: Nurse Practitioner Family; PCP Nurse Practitioner Family; Visit Provider Radiology Radiation Oncology
DX: C61 Malignant neoplasm of prostate; R00.1 Bradycardia, unspecified; Z79.899 Other long term (current) drug therapy; R35.1 Nocturia; R39.198 Other difficulties with micturition; Z79.818 Long term (current) use of other agents affecting estrogen receptors and estrogen levels; Z51.12 Encounter for antineoplastic immunotherapy
CPT/HCPCS: 36415; 80053; 84153; 84403; 85025; 96402; 99214; J9217

== ENCOUNTER 2024-06-04 11:48 | Oncology outpatient (recurring) (ONCR) | payer MEDICARE, SELFPAY ==
[2024-06-04 12:22] LABS: Basophils % 0.8 %; Eosinophils # 0.2 10^3/uL (0.0-0.8); Eosinophils % 4.3 %; Hematocrit 39.1 % (37-53); Lymphocytes # 1.5 10^3/uL (0.8-4.8); Lymphocytes % 30.6 %; Mean Corpuscular HGB Conc 32.7 g/dL (30-55); Mean Corpuscular Hemoglobin 28.3 pg (27-33); Mean Corpuscular Volume 86.3 fl (82-101); Mean Platelet Volume 9.2 fL (7.4-10.4); Monocytes # 0.4 10^3/uL (0.2-0.9); Monocytes % 7.8 %; Neutrophils # 2.74 10^3/uL (1.8-7.7); Neutrophils % 56.3 %; Nucleated Red Blood Cells % 0 %; Platelet Count 229 10^3/cmm (157-399); Red Blood Count 4.53 10^6/uL (3.85-5.65); Red Cell Distribution Width 13.1 % (12.1-15.1); White Blood Count 4.87 10^3/uL (3.29-11.43)
[2024-06-04 12:51] LABS: Alanine Aminotransferase 11 U/L (0-41); Albumin Level 3.6 g/dL (3.5-5.2); Alkaline Phosphatase 89 U/L (40-130); Aspartate Amino Transferase 18 U/L (0-40); Blood Urea Nitrogen 14 mg/dL (8-23); Calcium 8.6 mg/dL (8.5-10.5); Carbon Dioxide 25 mmol/L (22-29); Chloride 104 mmol/L (98-107); Globulin 2.9 g/dL (1.3-4.6); Glucose 164 mg/dL (65-115); Osmolality Calculated 290 mOsm/kg (285-295); Sodium 138 mmol/L (136-145); Testosterone Total 17.4 ng/dL (193-740); Total Bilirubin 0.4 mg/dL (0.15-1.2); Total Protein 6.5 g/dL (6.6-8.7)
[2024-06-04 12:52] LABS: Prostate Specific Antigen < 0.014 ng/mL (0-4)
[2024-06-04] MEDS: leuprolide 22.5 mg Kit IM (14:00)
== END 2024-06-28 23:59 | disposition home or self-care (01) ==
PROVIDERS: Internal Medicine Medical Oncology; PCP Nurse Practitioner Family; Visit Provider Radiology Radiation Oncology
DX: Z51.12 Encounter for antineoplastic immunotherapy (principal); C61 Malignant neoplasm of prostate; R00.1 Bradycardia, unspecified; Z79.899 Other long term (current) drug therapy; R35.1 Nocturia; R39.198 Other difficulties with micturition; Z79.818 Long term (current) use of other agents affecting estrogen receptors and estrogen levels
CPT/HCPCS: 36415; 80053; 84153; 84403; 85025; 96402; 99214; J9217

== ENCOUNTER 2024-08-27 12:05 | Oncology outpatient (recurring) (ONCR) | payer MEDICARE, SELFPAY ==
[2024-08-27 12:41] LABS: Basophils % 0.7 %; Eosinophils # 0.2 10^3/uL (0.0-0.8); Eosinophils % 3.4 %; Hematocrit 42.2 % (37-53); Mean Corpuscular HGB Conc 32.9 g/dL (30-55); Mean Corpuscular Hemoglobin 28.2 pg (27-33); Mean Corpuscular Volume 85.6 fl (82-101); Mean Platelet Volume 9.7 fL (7.4-10.4); Monocytes # 0.5 10^3/uL (0.2-0.9); Monocytes % 8.5 %; Neutrophils # 3.12 10^3/uL (1.8-7.7); Neutrophils % 53.2 %; Nucleated Red Blood Cells % 0 %; Platelet Count 237 10^3/cmm (157-399); Red Blood Count 4.93 10^6/uL (3.85-5.65); Red Cell Distribution Width 12.9 % (12.1-15.1); White Blood Count 5.86 10^3/uL (3.29-11.43)
[2024-08-27 13:07] LABS: Alanine Aminotransferase 10 U/L (0-41); Albumin Level 3.9 g/dL (3.5-5.2); Alkaline Phosphatase 74 U/L (40-130); Anion Gap 16.8 (5-19); Aspartate Amino Transferase 17 U/L (0-40); Blood Urea Nitrogen 15 mg/dL (8-23); Calcium 8.7 mg/dL (8.5-10.5); Carbon Dioxide 24 mmol/L (22-29); Chloride 101 mmol/L (98-107); Creatinine Clr Calc Pharmacy 61.9275; Globulin 2.6 g/dL (1.3-4.6); Glucose 155 mg/dL (65-115); Osmolality Calculated 290 mOsm/kg (285-295); Potassium 3.8 mmol/L (3.5-5.1); Sodium 138 mmol/L (136-145); Testosterone Total 2.5 ng/dL (193-740); Total Bilirubin 0.7 mg/dL (0.15-1.2); Total Protein 6.5 g/dL (6.6-8.7)
[2024-08-27 13:09] LABS: Prostate Specific Antigen < 0.014 ng/mL (0-4)
[2024-08-27] MEDS: leuprolide 22.5 mg Kit IM (13:26)
[2024-08-27 13:32] VITALS: BP 141/72; PULSE 63; RESP 17; O2SAT 98
== END 2024-08-28 23:59 | disposition home or self-care (01) ==
PROVIDERS: Nurse Practitioner Family; PCP Nurse Practitioner Family; Visit Provider Radiology Radiation Oncology
DX: Z51.12 Encounter for antineoplastic immunotherapy (principal); C61 Malignant neoplasm of prostate; R00.1 Bradycardia, unspecified; Z79.899 Other long term (current) drug therapy; R35.1 Nocturia; R39.198 Other difficulties with micturition; Z79.818 Long term (current) use of other agents affecting estrogen receptors and estrogen levels; Z53.9 Procedure and treatment not carried out, unspecified reason
CPT/HCPCS: 36415; 80053; 84153; 84403; 85025; 96402; 99214; J9217

== ENCOUNTER 2024-11-19 11:01 | Oncology outpatient (recurring) (ONCR) | payer MEDICARE, SELFPAY ==
[2024-11-19 11:32] LABS: Basophils % 0.6 %; Eosinophils # 0.2 10^3/uL (0.0-0.8); Hematocrit 42.5 % (37-53); Lymphocytes % 31.6 %; Mean Corpuscular HGB Conc 33.6 g/dL (30-55); Mean Corpuscular Hemoglobin 28.8 pg (27-33); Mean Corpuscular Volume 85.7 fl (82-101); Mean Platelet Volume 9.8 fL (7.4-10.4); Monocytes # 0.5 10^3/uL (0.2-0.9); Monocytes % 8.5 %; Neutrophils # 3.54 10^3/uL (1.8-7.7); Neutrophils % 56.1 %; Nucleated Red Blood Cells % 0 %; Platelet Count 235 10^3/cmm (157-399); Red Blood Count 4.96 10^6/uL (3.85-5.65); White Blood Count 6.32 10^3/uL (3.29-11.43)
[2024-11-19 12:02] LABS: Alanine Aminotransferase 13 U/L (0-41); Albumin Level 4.1 g/dL (3.5-5.2); Alkaline Phosphatase 79 U/L (40-130); Anion Gap 15.2 (5-19); Aspartate Amino Transferase 18 U/L (0-40); Blood Urea Nitrogen 14 mg/dL (8-23); Calcium 9.7 mg/dL (8.5-10.5); Carbon Dioxide 24 mmol/L (22-29); Chloride 104 mmol/L (98-107); Glucose 139 mg/dL (65-115); Osmolality Calculated 291 mOsm/kg (285-295); Potassium 4.2 mmol/L (3.5-5.1); Sodium 139 mmol/L (136-145); Total Bilirubin 0.7 mg/dL (0.15-1.2); Total Protein 7.1 g/dL (6.6-8.7)
[2024-11-19 12:03] LABS: Prostate Specific Antigen < 0.014 ng/mL (0-4); Testosterone Total < 2.5 ng/dL (193-740)
[2024-11-19] MEDS: leuprolide 22.5 mg Kit IM (14:10)
== END 2024-11-26 23:59 | disposition home or self-care (01) ==
PROVIDERS: Internal Medicine Medical Oncology; PCP Nurse Practitioner Family; Visit Provider Radiology Radiation Oncology
DX: Z51.11 Encounter for antineoplastic chemotherapy (principal); C61 Malignant neoplasm of prostate; R53.81 Other malaise; Z79.818 Long term (current) use of other agents affecting estrogen receptors and estrogen levels
CPT/HCPCS: 36415; 80053; 84153; 84403; 85025; 96402; 99214; J9217

== ENCOUNTER 2025-02-11 10:29 | Oncology outpatient (recurring) (ONCR) | payer MEDICARE, SELFPAY ==
[2025-02-11 11:07] LABS: Basophils % 0.6 %; Eosinophils # 0.3 10^3/uL (0.0-0.8); Hematocrit 42.5 % (37-53); Lymphocytes # 2.3 10^3/uL (0.8-4.8); Mean Corpuscular HGB Conc 33.9 g/dL (30-55); Mean Corpuscular Hemoglobin 29.1 pg (27-33); Mean Platelet Volume 9.4 fL (7.4-10.4); Monocytes # 0.5 10^3/uL (0.2-0.9); Monocytes % 6.7 %; Neutrophils # 3.72 10^3/uL (1.8-7.7); Neutrophils % 54.6 %; Nucleated Red Blood Cells % 0 %; Platelet Count 223 10^3/cmm (157-399); Red Blood Count 4.94 10^6/uL (3.85-5.65); Red Cell Distribution Width 12.8 % (12.1-15.1); White Blood Count 6.82 10^3/uL (3.29-11.43)
[2025-02-11 11:34] LABS: Alanine Aminotransferase 16 U/L (0-41); Alkaline Phosphatase 86 U/L (40-130); Aspartate Amino Transferase 21 U/L (0-40); Blood Urea Nitrogen 12 mg/dL (8-23); Calcium 9.7 mg/dL (8.5-10.5); Carbon Dioxide 23 mmol/L (22-29); Chloride 101 mmol/L (98-107); Globulin 3.1 g/dL (1.3-4.6); Glucose 167 mg/dL (65-115); Osmolality Calculated 288 mOsm/kg (285-295); Sodium 137 mmol/L (136-145); Total Bilirubin 1.1 mg/dL (0.15-1.2); Total Protein 7.1 g/dL (6.6-8.7)
[2025-02-11 11:36] LABS: Prostate Specific Antigen < 0.014 ng/mL (0-4); Testosterone Total < 2.5 ng/dL (193-740)
[2025-02-11] MEDS: leuprolide 22.5 mg Kit IM (13:37)
== END 2025-02-25 23:59 | disposition home or self-care (01) ==
PROVIDERS: Nurse Practitioner Family; PCP Nurse Practitioner Family; Visit Provider Radiology Radiation Oncology
DX: Z51.11 Encounter for antineoplastic chemotherapy (principal); C61 Malignant neoplasm of prostate; R53.81 Other malaise; Z79.818 Long term (current) use of other agents affecting estrogen receptors and estrogen levels
CPT/HCPCS: 36415; 80053; 84153; 84403; 85025; 96402; 99214; J9217

== ENCOUNTER 2025-05-06 11:34 | Oncology outpatient (recurring) (ONCR) | payer MEDICARE, SELFPAY ==
[2025-05-06 12:57] LABS: Hematocrit 39.9 % (37-53); Hemoglobin 13.10 g/dL (11.27-16.99); Mean Corpuscular HGB Conc 32.8 g/dL (30-55); Mean Corpuscular Hemoglobin 28.8 pg (27-33); Mean Corpuscular Volume 87.7 fl (82-101); Nucleated Red Blood Cells % 0 %; Platelet Count 207 10^3/cmm (157-399); Red Blood Count 4.55 10^6/uL (3.85-5.65); White Blood Count 6.56 10^3/uL (3.29-11.43)
[2025-05-06 13:25] LABS: Alanine Aminotransferase 14 U/L (0-41); Albumin Level 3.8 g/dL (3.5-5.2); Alkaline Phosphatase 80 U/L (40-130); Anion Gap 15.2 (5-19); Aspartate Amino Transferase 19 U/L (0-40); Blood Urea Nitrogen 11 mg/dL (8-23); Calcium 9.2 mg/dL (8.5-10.5); Carbon Dioxide 24 mmol/L (22-29); Chloride 103 mmol/L (98-107); Globulin 2.9 g/dL (1.3-4.6); Glucose 158 mg/dL (65-115); Osmolality Calculated 289 mOsm/kg (285-295); Potassium 4.2 mmol/L (3.5-5.1); Prostate Specific Antigen < 0.014 ng/mL (0-4); Sodium 138 mmol/L (136-145); Total Protein 6.7 g/dL (6.6-8.7)
[2025-05-06] MEDS: leuprolide 22.5 mg Kit IM (15:03)
== END 2025-05-28 23:59 | disposition home or self-care (01) ==
PROVIDERS: PCP Nurse Practitioner Family; Visit Provider Internal Medicine Medical Oncology
DX: Z51.11 Encounter for antineoplastic chemotherapy (principal); C61 Malignant neoplasm of prostate; R53.81 Other malaise; Z79.818 Long term (current) use of other agents affecting estrogen receptors and estrogen levels; R03.0 Elevated blood-pressure reading, without diagnosis of hypertension; Z86.73 Personal history of transient ischemic attack (TIA), and cerebral infarction without residual deficits; Z79.899 Other long term (current) drug therapy; Z91.81 History of falling
CPT/HCPCS: 36415; 80053; 84153; 84403; 85025; 96402; 99213; J9217

== ENCOUNTER 2025-08-05 13:14 | Oncology outpatient (recurring) (ONCR) | payer OTHER, SELFPAY ==
[2025-08-05 13:29] LABS: Hematocrit 41.8 % (37-53); Hemoglobin 14.20 g/dL (11.27-16.99); Mean Corpuscular HGB Conc 34.0 g/dL (30-55); Mean Corpuscular Hemoglobin 29.3 pg (27-33); Mean Corpuscular Volume 86.2 fl (82-101); Nucleated Red Blood Cells % 0 %; Platelet Count 232 10^3/cmm (157-399); Red Blood Count 4.85 10^6/uL (3.85-5.65); White Blood Count 7.07 10^3/uL (3.29-11.43)
[2025-08-05 13:54] LABS: Alanine Aminotransferase 12 U/L (0-41); Albumin Level 4.1 g/dL (3.5-5.2); Alkaline Phosphatase 86 U/L (40-130); Anion Gap 17.2 (5-19); Aspartate Amino Transferase 18 U/L (0-40); Blood Urea Nitrogen 14 mg/dL (8-23); Calcium 9.2 mg/dL (8.5-10.5); Carbon Dioxide 23 mmol/L (22-29); Chloride 103 mmol/L (98-107); Globulin 3.1 g/dL (1.3-4.6); Glucose 146 mg/dL (65-115); Osmolality Calculated 291 mOsm/kg (285-295); Potassium 4.2 mmol/L (3.5-5.1); Sodium 139 mmol/L (136-145); Total Protein 7.2 g/dL (6.6-8.7)
[2025-08-05 13:55] LABS: Prostate Specific Antigen < 0.014 ng/mL (0-4)
[2025-08-05] MEDS: leuprolide 22.5 mg Kit IM (15:08)
== END 2025-08-28 23:59 | disposition home or self-care (01) ==
PROVIDERS: Nurse Practitioner; PCP Nurse Practitioner Family; Visit Provider Internal Medicine Medical Oncology
DX: Z53.9 Procedure and treatment not carried out, unspecified reason; Z51.11 Encounter for antineoplastic chemotherapy; C61 Malignant neoplasm of prostate; R53.81 Other malaise; R03.0 Elevated blood-pressure reading, without diagnosis of hypertension; K08.89 Other specified disorders of teeth and supporting structures; M85.80 Other specified disorders of bone density and structure, unspecified site; Z92.3 Personal history of irradiation; Z79.899 Other long term (current) drug therapy
CPT/HCPCS: 36415; 80053; 84153; 84403; 85025; 96401; 99214; J9217